=== PATIENT | female | born 1945 | race Caucasian/White ===

== ENCOUNTER 2020-01-13 11:51 | Outpatient (CLI) | payer MEDICARE, OTHER, SELFPAY ==
--- NOTE | 2020-01-13 11:58 | MM_ITS ---
WS: [id number] BILATERAL SCREENING DIGITAL MAMMOGRAM WITH CAD HISTORY: SCREENING COMPARISON: 11/20/2018, 10/30/2017, 09/15/2015 and 08/27/2013 Bilateral CC and MLO views submitted. Computer aided detection analyzed. Breast composition: There are scattered areas of fibroglandular density. No suspicious masses, microc alcifications or architectural distortion. Asymmetry in the lateral LEFT breast has been present on m ultiple prior studies. No increase in size. MM/[id number] IMPRESSION: BI-RADS: 2-Benign FOLLOW UP: 1 Year Follow-up
== END 2020-01-13 11:52 | disposition home or self-care (01) ==
LOC: RADSHAW 11:58
PROVIDERS: PCP Family Medicine; Visit Provider Family Medicine
DX: Z12.31 Encounter for screening mammogram for malignant neoplasm of breast (principal)
CPT/HCPCS: 77067

== ENCOUNTER → 2020-10-29 13:18 | Outpatient (BNVA) | payer MEDICARE, BC, SELFPAY | PROVIDERS: PCP Family Medicine; Visit Provider Surgery | DX: Z01.812 Encounter for preprocedural laboratory examination (principal); Z20.822 Contact with and (suspected) exposure to COVID-19 | CPT/HCPCS: 87635 ==

== ENCOUNTER 2020-11-04 08:23 | Day surgery (SDC) | payer MEDICARE, BC, SELFPAY ==
--- NOTE | 2020-11-04 08:36 | ANES.PREANE2 ---
Pre-Anesthetic Assessment Pre-Anesthetic Assessment: Height/Weight: Height 1.65 m Weight 80.286 kg Preop Diagnosis: SCreening Proposed Procedure: Operation Date: 11/04/20 10:00 Proposed Procedures p Colonoscopy 34969 z12.11(Not Applicable) - Eliel Dwyer MD Familial anesthetic complications: None Was Beta Kim taken within 24 hours: N/A Was Clonidine taken within 24 hours: N/A Last intake: > 8 hrs Social: Social History: No alcohol and No tobacco Exam: Pre-Anes Outpt Exam: alert, oriented x 3, clear to auscultation bilaterally and regular rate & rhythm Airway: Cervical ROM: WNL MP: 2 Dentition: False CV/HEM: CV/HEM: HTN Comments: achieves > 4 mets without LONG or Chest pains Anesthetic Plan: ASA status: 2 Anesthesia: MAC Risk of > 500 ml blood loss (7ml/kg in children): No PFSH Anesthesia PFSH: Medical History Hypertension Osteoporosis Surgical History History of colonoscopy 10 years ago History of hysterectomy History of left knee replacement History of lumbar fusion History of shoulder surgery Bilateral Family History Denies family history of Anesthesia complication Bleeding disorder Social History Smoking and tobacco status: former smoker Data Anesthesia Cardiac Studies: No Data to Display
--- NOTE | 2020-11-04 08:58 | W.PM.OPSUD ---
Surgery/Procedure H&P Update DATE OF PROCEDURE: November 04, 2020 DATE H&P PERFORMED: 10/11/20 H&P UPDATE INFORMATION: I have reviewed H&P completed within last 30 days, I have examined patient prior to procedure and No changes to prior documentation PREOP DIAGNOSIS: screening colonoscopy PLANNED PROCEDURE: Operation Date: 11/04/20 10:00 Proposed Procedures p Colonoscopy 63330 z12.11(Not Applicable) - Eliel Dwyer MD
[2020-11-04 09:18] VITALS: BP 151/87; PULSE 72; RESP 18; TEMP 36.3; O2SAT 95
[2020-11-04] MEDS: sodium chloride 0.9% 1,000 ML 30 ML IV (09:30)
[2020-11-04 10:24] VITALS: BP 98/60; PULSE 70; RESP 18; TEMP 36.5; O2SAT 98
[2020-11-04 10:34] VITALS: BP 108/60; PULSE 66; RESP 18; TEMP 36.3; O2SAT 96
--- NOTE | 2020-11-04 11:18 | ANE.PACU2 ---
Inpatient post-anesthesia follow up: Airway intact: Yes Vital signs: Temperature 97.4 F Pulse Rate 66 Respiratory Rate 18 Blood Pressure 108/60 Pulse Oximetry 96 Oxygen Delivery Me thod Room Air Oxygen Flow Rate Fraction of Inspir ed Oxygen Hydration adequate: Yes Mental status: Baseline
== END 2020-11-04 10:45 | disposition home or self-care (01) ==
PROVIDERS: PCP Family Medicine; Visit Provider Surgery
PROC: 0DJD8ZZ Inspection of Lower Intestinal Tract, Via Natural or Artificial Opening Endoscopic (ICD-10-PCS; CPT 45378; principal; 2020-11-04 10:00)
DX: Z12.11 Encounter for screening for malignant neoplasm of colon (principal); K57.30 Diverticulosis of large intestine without perforation or abscess without bleeding; I10 Essential (primary) hypertension; M81.0 Age-related osteoporosis without current pathological fracture; Z87.891 Personal history of nicotine dependence
CPT/HCPCS: 45378; 96360; J2704; J3490; J7030

== ENCOUNTER 2021-02-10 14:10 | Outpatient (CLI) | payer MEDICARE, BC, SELFPAY ==
--- NOTE | 2021-02-10 14:15 | MM_ITS ---
WS: [id number] BILATERAL SCREENING DIGITAL MAMMOGRAM WITH CAD HISTORY: SCREENING COMPARISON: 01/13/2020 and 11/20/2018 and 10/30/2017 Bilateral CC and MLO views submitted. Computer aided detection analyzed. Breast composition: There are scattered areas of fibroglandular density. No suspicious masses, microc alcifications or architectural distortion. Stable 5 mm nodule in the lateral LEFT breast. MM/[id number] IMPRESSION: BI-RADS: 2-Benign FOLLOW UP: 1 Year Follow-up
== END 2021-02-10 14:11 | disposition home or self-care (01) ==
LOC: RADSHAW 14:12
PROVIDERS: PCP Family Medicine; Visit Provider Family Medicine
DX: Z12.31 Encounter for screening mammogram for malignant neoplasm of breast (principal)
CPT/HCPCS: 77067

== ENCOUNTER 2022-02-13 08:48 | Outpatient (CLI) | payer MEDICARE, SELFPAY ==
--- NOTE | 2022-02-13 08:53 | MM_ITS ---
WS: [id number] SCREENING DIGITAL TOMOSYNTHESIS MAMMOGRAM WITH CAD HISTORY: SCREENING COMPARISON: 02/10/2021 and 01/13/2020 Bilateral CC and MLO with tomosynthesis views submitted. Synthetic mammography reviewed. Computer aid ed detection analyzed. Breast composition: There are scattered areas of fibroglandular density. No suspicious masses, microc alcifications or architectural distortion. MM/[place] [id number] IMPRESSION: BI-RADS: 1-Negative FOLLOW UP: 1 Year Follow-up
== END 2022-02-13 08:49 | disposition home or self-care (01) ==
LOC: RAD 08:50
PROVIDERS: PCP Family Medicine; Visit Provider Family Medicine
DX: Z12.31 Encounter for screening mammogram for malignant neoplasm of breast (principal)
CPT/HCPCS: 77063; 77067

== ENCOUNTER → 2022-08-10 13:59 | Outpatient (BNVA) | payer MEDICARE, SELFPAY | PROVIDERS: PCP Family Medicine; Visit Provider Family Medicine | DX: L98.9 Disorder of the skin and subcutaneous tissue, unspecified (principal) | CPT/HCPCS: 88304 ==

== ENCOUNTER → 2022-10-26 10:57 | Outpatient (BNVA) | payer MEDICARE, SELFPAY | PROVIDERS: PCP Family Medicine; Visit Provider Family Medicine | DX: E78.5 Hyperlipidemia, unspecified (principal); I10 Essential (primary) hypertension; R00.2 Palpitations | CPT/HCPCS: 80053; 80061; 83735; 83880; 84443; 85025; 86140 ==

== ENCOUNTER 2022-12-08 09:56 | Inpatient (IN) | payer MEDICARE, SELFPAY ==
[2022-12-08] VITALS (24 sets, daily range): BP systolic 93–149; BP diastolic 55–95; PULSE 62–113; RESP 14–21; TEMP 36.1–36.7; O2SAT 94–100; BMI 28.3
--- NOTE | 2022-12-08 09:57 | ED_ITS ---
HPI - Fall General: Chief Complaint: ER Hold Stated Complaint: left hip pain. post fall Time Seen by Provider: 12/08/22 09:56 History of Present Illness: 76-year-old lady presenting with fall and hip pain. She reports being at her baseline health and thinks she just tripped falling primarily on the right side. Denies head strike or loss of consciousness. She is on full dose aspirin but no other and coagulation or antiplatelet agent. Does have mild left arm pain. Denies numbness tingling. Pain is mild at rest however becomes severe with palpation and movement. Unable to ambulate. No other specific changes in health, exacerbating, or alleviating factors identified. Supplemental information is that she is currently undergoing evaluation for possible cardiac cause of syncope. She does not think that this is the reason that she fell today however she is wearing a heart monitor. Onset (ago): minute(s) Fall from: standing Loss of consciousness: None Symptoms prior to fall: none Context: tripped/slipped Review of Systems General: Reports: 10 or more systems reviewed and unremarkable except in HPI and below PFSH ED PFSH: Medical History Hypertension Lichen planus Osteoporosis Surgical History History of colonoscopy (11/04/20) Diverticulosis History of hysterectomy History of left knee replacement History of lumbar fusion History of shoulder surgery Bilateral Family History Denies family history of Anesthesia complication Bleeding disorder Social History (Updated 12/08/22 @ 13:57 by Ben Paez MD) Smoking and tobacco status: former smoker Alcohol intake: never Substance/Drug Use: never Caregiver/support person: Yes Lives independently: Yes Household members: spouse Housing: House Physical Exam Const: COMMON NORMALS: alert GENERAL APPEARANCE: cooperative and well developed HENMT: COMMON NORMALS: normocephalic and atraumatic HEAD & SCALP: normocephalic and atraumatic OTHER: No reid signs or raccoon eyes. No hemotympanum. No otorrhea or rhinorrhea. Jaw alignment normal. Dentition baseline. No obvious bony step-offs. No septal hematoma. No evidence of ocular entrapment. Eye: COMMON NORMALS: conjunctivae normal CONJUNCTIVA: Yes conjunctivae normal SCLERA: sclerae normal Neck/C-Spine: COMMON NORMALS: full ROM and supple GENERAL: Yes trachea midline Resp: COMMON NORMALS: normal respiratory effort EFFORT & INSPECTION: Yes able to speak in complete sentences Cardio: COMMON NORMALS: regular rate and regular rhythm RATE: regular rate RHYTHM: regular rhythm GI: COMMON NORMALS: Soft to palpation PALPATION: Yes Soft to palpation and No Tenderness to palpation present (GI) Extremity: NARRATIVE EXTREMITY EXAM: Left hip without clear deformity, distal CMS intact, tenderness palpation. GENERAL: Yes normal exam except as noted and No edema Neuro: COMMON NORMALS: moves all extremities SENSORIUM/ORIENTATION: Yes alert and No Orientation impaired Psych: COMMON NORMALS: mental status grossly normal and Normal thought process present THOUGHT PROCESS: Normal thought process present Course Vital Signs: Vital signs: Vital Signs Temperature 98.0 F 12/14/22 07:33 Pulse Rate 87 12/14/22 07:33 Respiratory Rate 16 12/14/22 07:33 Blood Pressure 152/70 12/14/22 07:33 Pulse Oximetry 92 12/14/22 07:33 Oxygen Delivery Me thod Room Air 12/14/22 07:33 Oxygen Flow Rate 2 12/14/22 08:00 MDM - Fall Medical Decision Making 77-year-old lady presenting with suspected trip and fall unable to ambulate after. Exam as above. Head to toe exam performed. EKG demonstrates sinus rhythm with normal axis and intervals, no STEMI. Labs with no significant hematologic or metabolic abnormalities. Negative range delta troponin. Additional labs were appropriate given evaluation for cardiac syncope and somewhat more vague history upon reassessment and discussion with patient. Chest x-ray with no lobar consolidation or pneumothorax. X-ray positive for left intertrochanteric fracture with displacement. Distal orthopedics and additional x-rays ordered for evaluation of adjacent possible injury. The results of ED evaluation were discussed with the patient including plan for admission due to requirement for level of care not available if discharged to prevent significant worsening/deterioration. Patient agreeable with plan. Discussed with hospitalist service who was agreeable to admit patient. Medical Records I reviewed the patient's medical records. Lab Data I reviewed the patient's lab results. 12/14/22 03:55 12/10/22 04:25 Radiology Impressions Chest X-Ray 06/16/23 10:16 IMPRESSION: No acute chest abnormality. Femur X-Ray 12/08/22 10:46 IMPRESSION: Left hip fracture with intact distal femur and left total knee arthroplasty. Knee X-Ray 12/08/22 10:48 IMPRESSION: Total left knee arthroplasty without abnormality. Pelvis X-Ray 12/08/22 10:48 IMPRESSION: Left hip fracture as above. Hip/Pelvis X-Ray 12/08/22 20:22 IMPRESSION: 1. Left femur surgical hardware in place bridging a previously seen intertrochanteric fracture with postsurgical soft tissue findings about the left hip. 2. Lumbar spine surgical hardware. Laboratory Results WBC 6.7 10^3/uL (4.0-10.0) 12/08/22 10:16 RBC 4.23 10^6/uL (4.1-5.3) 12/08/22 10:16 Hgb 13.0 g/dL (11.5-15.3) 12/08/22 10:16 Hct 37.8 % (37.0-47.0) 12/08/22 10:16 MCV 89.4 fl (81-99) 12/08/22 10:16 MCH 30.7 pg (28.0-34.0) 12/08/22 10:16 MCHC 34.4 g/dL (30.0-36.0) 12/08/22 10:16 RDW 11.9 % (12.1-15.1) L 12/08/22 10:16 Plt Count 200 10^3/cmm (130-400) 12/08/22 10:16 MPV 9.9 fL (7.4-10.4) 12/08/22 10:16 Neut % (Auto) 35.7 % 12/08/22 10:16 Lymph % (Auto) 50.3 % 12/08/22 10:16 [place] % (Auto) 9.5 % 12/08/22 10:16 Eos % (Auto) 3.7 % 12/08/22 10:16 Baso % (Auto) 0.7 % 12/08/22 10:16 Neut # (Auto) 2.39 10^3/uL (1.8-7.7) 12/08/22 10:16 Lymph # (Auto) 3.4 10^3/uL (0.8-4.8) 12/08/22 10:16 [place] # (Auto) 0.6 10^3/uL (0.2-0.9) 12/08/22 10:16 Eos # (Auto) 0.3 10^3/uL (0.0-0.8) 12/08/22 10:16 Baso # (Auto) 0.1 10^3/uL (0.0-0.1) 12/08/22 10:16 Nucleated RBC % (auto) 0 % 12/08/22 10:16 Nucleated RBCs # 0.0 /100WBC 12/08/22 10:16 Sodium 134 mmol/L (136-145) L 12/08/22 10:16 Potassium 4.3 mmol/L (3.5-5.1) 12/08/22 10:16 Chloride 99 mmol/L (98-107) 12/08/22 10:16 Carbon Dioxide 23 mmol/L (22-29) 12/08/22 10:16 Anion Gap 16.3 (5-19) 12/08/22 10:16 BUN 15 mg/dL (8-23) 12/08/22 10:16 Creatinine 0.8 mg/dL (0.5-0.9) 12/08/22 10:16 GFR Calculation Not Reportable 12/08/22 10:16 Glucose 101 mg/dL (65-115) 12/08/22 10:16 Calculated Osmolality 279 mOsm/kg (285-295) L 12/08/22 10:16 Calcium 8.7 mg/dL (8.5-10.5) 12/08/22 10:16 Total Bilirubin 0.3 mg/dL (0.15-1.2) 12/08/22 10:16 AST 27 U/L (0-32) 12/08/22 10:16 ALT 14 U/L (0-33) 12/08/22 10:16 Alkaline Phosphatase 89 U/L (35-105) 12/08/22 10:16 Troponin T Baseline 9 ng/L (0-10) 12/08/22 10:16 NT-Pro-B Natriuret Pep 177 pg/mL (0-450) 12/08/22 10:16 Total Protein 7.3 g/dL (6.6-8.7) 12/08/22 10:16 Albumin 4.3 g/dL (3.5-5.2) 12/08/22 10:16 Globulin 3.0 g/dL (1.3-4.6) 12/08/22 10:16 Vitamin B12 > 2000 pg/mL (232-1245) H 12/08/22 10:16 Discharge Plan Discharge Patient Disposition: Admitted As Inpatient Admit Provider: Ben Paez Clinical Impression: Closed intertrochanteric fracture of left hip Condition: Stable Discharge Diet: Advance as tolerated Discharge Activity: Increase activity as tolerated, Use walker/crutches as instructed and As per PT/OT instructions Coding Level of Care Code ED Fitness Plan Coordinator for Madisyn Eason
--- NOTE | 2022-12-08 10:09 | XR_ITS ---
WS: [id number] XR hip LT 2-3V wo/w pel* [id number] REASON FOR EXAM: fall, hip pain FINDINGS: Intertrochanteric fracture with significant medial displacement of the lesser trochanteric fracture f ragment. Remaining fracture fragments are not significantly displaced. XR/XR hip LT 2-3V wo/w pel* [id number] IMPRESSION: Left hip fracture as above.
--- NOTE | 2022-12-08 10:16 | XR_ITS ---
WS: [id number] XR chest 1V portable [id number] REASON FOR EXAM: fall FINDINGS: The heart and the mediastinum are within normal limits. Calcified granulomatous disease bilaterally. No active pulmonary parenchymal or pleural disease. Significant arthropathy in the right shoulder. Likely due to complete tear of the rotator cuff tendon . Previous rotator cuff tendon repair on the left. Mild degenerative spondylosis in the mid and upper thoracic spine. XR/XR chest 1V portable [id number] IMPRESSION: No acute chest abnormality.
[2022-12-08] MEDS: fentaNYL 50 mcg/mL INJ 2mL IVP ×6 (10:21→20:45)
--- NOTE | 2022-12-08 10:29 | ECG_ITS ---
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 Measurements Intervals [place] Rate: 63 P: 40 IN: 155 QRS: 16 QRSD: 81 T: 41 QT: 413 QTc: 424 Interpretive Statements SINUS RHYTHM No previous ECG available for comparison Electronically Signed On 12-08-2022 11:19:33 CDT by Isauro Lazo M.D. [id number]
[2022-12-08 10:31] LABS: Basophils # 0.1 10^3/uL (0.0-0.1); Basophils % 0.7 %; Eosinophils # 0.3 10^3/uL (0.0-0.8); Eosinophils % 3.7 %; Hematocrit 37.8 % (37.0-47.0); Lymphocytes # 3.4 10^3/uL (0.8-4.8); Lymphocytes % 50.3 %; Mean Corpuscular HGB Conc 34.4 g/dL (30.0-36.0); Mean Corpuscular Hemoglobin 30.7 pg (28.0-34.0); Mean Corpuscular Volume 89.4 fl (81-99); Mean Platelet Volume 9.9 fL (7.4-10.4); Monocytes # 0.6 10^3/uL (0.2-0.9); Monocytes % 9.5 %; Neutrophils # 2.39 10^3/uL (1.8-7.7); Neutrophils % 35.7 %; Nucleated Red Blood Cells % 0 %; Platelet Count 200 10^3/cmm (130-400); Red Blood Count 4.23 10^6/uL (4.1-5.3); Red Cell Distribution Width 11.9 % (12.1-15.1); White Blood Count 6.7 10^3/uL (4.0-10.0)
--- NOTE | 2022-12-08 10:46 | XR_ITS ---
WS: [email or web address] XR femur LT min 2V* [id number] REASON FOR EXAM: hip frac FINDINGS: Left hip fracture as previously described. The remainder of the femur to the knee joint is intact with a total left knee arthroplasty. The compo nents of the arthroplasty are intact and in proper position and alignment. There is no fracture or ot her focal bony abnormality of the distal left femur. XR/XR femur LT min 2V* [id number] IMPRESSION: Left hip fracture with intact distal femur and left total knee arthroplasty.
--- NOTE | 2022-12-08 10:48 | XR_ITS ---
WS: [email or web address] XR knee LT 3V* [id number] REASON FOR EXAM: hip fr FINDINGS: Total left knee arthroplasty. Prosthetic components are intact and in proper position and alignment. No fracture or focal bone abnormality is identified. XR/XR knee LT 3V* [id number] IMPRESSION: Total left knee arthroplasty without abnormality.
--- NOTE | 2022-12-08 10:48 | XR_ITS ---
WS: [id number] XR pelvis 1-2V* [id number] REASON FOR EXAM: hip fracture FINDINGS: Previous posterior fusion lower lumbar sacral spine. No pelvic fracture. Intertrochanteric fracture of the left hip with significant medial displacement of the lesser trochan teric fragment. 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 XR/XR pelvis 1-2V* [id number] IMPRESSION: Left hip fracture as above.
[2022-12-08 10:49] LABS: Troponin(5th) Baseline 9 ng/L (0-10)
[2022-12-08 10:58] LABS: Alanine Aminotransferase 14 U/L (0-33); Albumin Level 4.3 g/dL (3.5-5.2); Alkaline Phosphatase 89 U/L (35-105); Anion Gap 16.3 (5-19); Aspartate Amino Transferase 27 U/L (0-32); Blood Urea Nitrogen 15 mg/dL (8-23); Calcium 8.7 mg/dL (8.5-10.5); Carbon Dioxide 23 mmol/L (22-29); Chloride 99 mmol/L (98-107); Glucose 101 mg/dL (65-115); NT Pro B Type Natriuretic Pept 177 pg/mL (0-450); Osmolality Calculated 279 mOsm/kg (285-295); Potassium 4.3 mmol/L (3.5-5.1); Sodium 134 mmol/L (136-145); Total Bilirubin 0.3 mg/dL (0.15-1.2); Total Protein 7.3 g/dL (6.6-8.7)
--- NOTE | 2022-12-08 11:51 | ECG_ITS ---
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 Measurements Intervals [place] Rate: 69 P: 33 DC: 145 QRS: 9 QRSD: 98 T: 32 QT: 418 QTc: 450 Interpretive Statements SINUS RHYTHM Compared to ECG 12/08/2022 10:29:09 No significant changes Electronically Signed On 12-08-2022 12:17:30 CDT by Isauro Lazo M.D. [id number]
[2022-12-08 12:42] LABS: Troponin 5 2HR 7.68 ng/L (0-10)
[2022-12-08 12:46] LABS: Troponin 5 2HR Delta -1.32 ABS# (0-10)
--- NOTE | 2022-12-08 13:20 | P.HP_ITS ---
Providers/Chief Complaint Admitting Physician: Ben Paez MD Primary Care Provider: Contreras Jose MD Chief Complaint: left hip pain. post fall History of Present Illness Adriano Grubbs is a 76 year old female with past medical history of hypertension, recent under evaluation for syncope and collapse with event monitor which showed no A-fib. 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 As per the family at that time when they check blood pressure she was found to be hypotensive with systolic blood pressure of around 80 mmHg which recovered with oral intake of fluids and salt. Family does say that patient usually does not drink much of the fluids during the day. That day prior to syncope she did have a trip to [facility] and did not drink much of the liquids. Today while walking she tripped. She denies any aura, headache, chest pain, nausea or vomiting prior to the fall. After fall started having pain in her hip. In the ER found to have left hip fracture. Review of Systems General: Reports: 10 or more systems reviewed and unremarkable except in HPI and below Const: Denies: fever(s), chills, body aches, change in appetite, change in weight, malaise, night sweats, diaphoresis, change in sleep pattern, daytime sleepiness or snoring Eyes: Denies: change in vision, blurry vision, photophobia, eye discomfort or eye discharge ENMT: Denies: throat pain, enlarged tonsils, hoarseness, mouth pain, oral sores, dry mouth, tinnitus, nasal congestion or post nasal drip Card: Denies: chest pain, palpitations, irregular heart rhythm, edema, swelling of feet/ankles, lightheadedness, syncope, pre-syncope, dyspnea on exer tion, orthopnea, leg pain with exertion or acrocyanosis Resp: Denies: dyspnea, productive cough, non-productive cough, wheezing, stridor, pain on inspiration, change in phlegm color, hemoptysis or chest congestion GI: Denies: abdominal pain, nausea, vomiting, hematemesis, coffee ground emesis, dysphagia, heartburn, diarrhea, constipation, bloating, GI cramping, change in bowel habits, pain on defecation, hematochezia or melena : Denies: flank pain, dysuria, urinary frequency, urinary urgency, urinary hesitancy, nocturia or hematuria Musc: Denies: neck pain, back pain, extremity pain, joint pain, joint swelling, joint redness, joint stiffness or limited range of motion Neuro: Denies: headache(s), numbness in extremities, weakness in extremities, sensory changes, lack of coordination, difficulty walking, frequent falls, dizziness, vertigo, confusion, Slurred speech present, difficulty communicating thoughts or seizure-like activity Psych: Denies: anxiety, depression, mood swings, panic attacks, hopelessness or irritability Endo: Denies: polyuria, polydipsia, tired all the time, cold intolerance, excessive sweating, flushing or heat intolerance Javi/Lymph: Denies: easy bruising or easy bleeding All/Imm: Denies: tongue swelling, facial swelling or acute wheezing Medications/Allergies Home Medications Medication Instructions Recorded Confirmed Last Taken Type triamcinolone acetonide 0.5 % 1 applic topical BID #15 grams 08/28/22 12/08/22 12/07/22 Rx topical ointment lisinopril 20 mg tablet 20 mg PO DAILY #30 tabs 10/10/22 12/08/22 12/07/22 Rx alendronate 70 mg tablet 70 mg PO .weekly #12 tabs 10/26/22 12/08/22 12/04/22 Rx ascorbic acid (vitamin C) 1,000 mg 1,000 mg PO DAILY 12/08/22 12/08/22 12/07/22 History tablet (Vitamin C) aspirin 325 mg capsule 325 mg PO DAILY 12/08/22 12/08/22 12/07/22 History cholecalciferol (vitamin D3) 25 25 mcg PO DAILY 12/08/22 12/08/22 12/07/22 History mcg (1,000 unit) tablet (Vitamin D3) glucosamine sulf dipot 1 cap PO DAILY 12/08/22 12/08/22 12/07/22 History chlr,msm,chond 550 mg-C 30 mg-murtaza 1 mg capsule (Glucosamine Chondroitin) multivitamin-ferrous 1 tab PO DAILY 12/08/22 12/08/22 12/07/22 History fumarate-folic acid 18 mg-400 mcg tablet potassium citrate 99 mg capsule 99 mg PO DAILY 12/08/22 12/08/22 12/08/22 History vitamin B12 2,500 mcg-folic acid 1 tab PO DAILY 12/08/22 12/08/22 12/07/22 History 400 mcg disintegrating tablet Allergies Allergy/AdvReac Type Severity Reaction Status Date / Time codeine Allergy Itching Verified 12/08/22 11:35 PFSH Acute PFSH: Medical History Hypertension Lichen planus Osteoporosis Surgical History History of colonoscopy (11/04/20) Diverticulosis History of hysterectomy History of left knee replacement History of lumbar fusion History of shoulder surgery Bilateral Family History Denies family history of Anesthesia complication Bleeding disorder Social History (Updated 12/08/22 @ 13:57 by Ben Paez MD) Smoking and tobacco status: former smoker Alcohol intake: never Substance/Drug Use: never Caregiver/support person: Yes Lives independently: Yes Household members: spouse Housing: House Vitals/I&O/Wt Last Vital Signs Temp 97.6 F 12/08/22 10:04 Pulse 66 12/08/22 12:00 Resp 14 12/08/22 12:00 BP 123/82 12/08/22 12:00 Pulse Ox 97 12/08/22 12:00 O2 Del Method Room Air 12/08/22 12:13 Weight last 48 hrs Weight 77.111 kg Physical Exam Narrative: General: No acute distress, AO x3 HEENT: PERRLA, pupils bilaterally equal and reactive Chest: Normal vesicular breath sounds, no added sounds, equal good air entry bilaterally CVS: S1-S2 regular, no murmurs, no tachycardia, no gallops, no rubs Abdomen: Soft, nontender, no organomegaly, bowel sounds present Neuro: No focal deficits, no facial deformity, AO x3, power 5/5 in all limbs Extremity: Leg in antalgic position. Data 12/08/22 10:16 12/08/22 10:16 A&P Assessment and plan (1) Closed intertrochanteric fracture of left hip: Orthopedic consulted from the ER. Post mechanical fall. Plan for OR. Perioperative antibiotics, anticoagulation, PT as per orthopedic team. Stewart catheterization. Start on normal saline at 75 cc/h. [place] 5 mg every 6 hourly as needed, morphine 1 mg IV every 4 hours needed for pain medication. Monitor hemoglobin. (2) Hypertension: Goal of pressure less than 140/90 mmHg. Continue with home dose of lisinopril for now. Continue to monitor blood pressures. (3) Palpitations: Been worked up as an outpatient. Event monitor showed no A-fib. Continue to monitor on telemetry. Plan Syncope and collapse: Mechanical fall today. 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 Associated with hypotension as per family. Continue to monitor. Carotid ultrasound, echocardiogram. Check iron panel, TSH, vitamin B12, folate level. CODE STATUS: Discussed in detail with the patient. Full code. NPO. Cardiac diet post OR. Famotidine for PUD prophylaxis. Foot pumps for DVT prophylaxis. Attestations Medical Necessity Statement*: Admission for more than 2 midnights for management of left hip fracture Diagnoses Closed intertrochanteric fracture of left hip S72.142A Hypertension I10 Palpitations R00.2
[2022-12-08] MEDS: morphine 4 mg/mL SDV 1 mL IVP (14:09)
[2022-12-08] MEDS: morphine 4 mg/mL SDV 1 mL 1 MG IVP (15:04)
[2022-12-08] MEDS: sodium chloride 0.9% 1,000 ML 75 ML IV (15:05)
[2022-12-08 15:15] LABS: Add Urine Microscopic? NO; Charge for UA Resulting for Rev
[2022-12-08 15:20] LABS: Vitamin B12 > 2000 pg/mL (232-1245)
[2022-12-08 15:26] LABS: Bilirubin Urine Neg (Negative); Blood Urine Neg (Negative); Glucose Urine UA Norm (Normal); Ketones Urine Negative (Negative); Leukocyte Esterase Urine Negative (Negative); Nitrate Urine Negative (Negative); Protein Urine Neg (Negative); Specific Gravity, Urine 1.015 (1.005-1.030); Urine Appearance Clear (CLEAR); Urine Color Yellow (Yellow); Urobilinogen Urine Norm (Negative); pH Urine 6.5 (5-7)
--- NOTE | 2022-12-08 15:29 | P.CONIM_ITS ---
Providers/Reason For Consult Consulting Physician/Specialty*: Ba Olvera DO/orthopedic surgery Reason for Consult*: Left intertrochanteric femur fracture Requesting Physician: Dr. Bonner Attending Physician: Ben Paez MD Primary Care Provider: Contreras Jose MD History of Present Illness History of Present Illness Adriano Grubbs is a 76 year old female with past medical history of hypertension, recent under evaluation for syncope and collapse with event monitor which showed no A-fib.? Patient sustained a ground-level fall onto her left hip she was unable to bear weight. Brought to emergency department found to have left intertrochanteric femur fracture. She denies any fevers chills chest pain shortness of breath nausea vomiting she states she last ate at 8 AM of coffee and cookies. Patient has a history remote of a left total knee arthroplasty she denies any pain to this area complains only of left hip pain. She lives at home and is a community ambulator at baseline. She lives at home with her . Review of Systems General: Reports: 10 or more systems reviewed and unremarkable except in HPI and below Medications/Allergies Home Medications Medication Instructions Recorded Confirmed Last Taken Type triamcinolone acetonide 0.5 % 1 applic topical BID #15 grams 08/28/22 12/08/22 12/07/22 Rx topical ointment lisinopril 20 mg tablet 20 mg PO DAILY #30 tabs 10/10/22 12/08/22 12/07/22 Rx alendronate 70 mg tablet 70 mg PO .weekly #12 tabs 10/26/22 12/08/22 12/04/22 Rx ascorbic acid (vitamin C) 1,000 mg 1,000 mg PO DAILY 12/08/22 12/08/22 12/07/22 History tablet (Vitamin C) aspirin 325 mg capsule 325 mg PO DAILY 12/08/22 12/08/22 12/07/22 History cholecalciferol (vitamin D3) 25 25 mcg PO DAILY 12/08/22 12/08/22 12/07/22 History mcg (1,000 unit) tablet (Vitamin D3) glucosamine sulf dipot 1 cap PO DAILY 12/08/22 12/08/22 12/07/22 History chlr,msm,chond 550 mg-C 30 mg-murtaza 1 mg capsule (Glucosamine Chondroitin) multivitamin-ferrous 1 tab PO DAILY 12/08/22 12/08/22 12/07/22 History fumarate-folic acid 18 mg-400 mcg tablet potassium citrate 99 mg capsule 99 mg PO DAILY 12/08/22 12/08/22 12/08/22 History vitamin B12 2,500 mcg-folic acid 1 tab PO DAILY 12/08/22 12/08/22 12/07/22 History 400 mcg disintegrating tablet Allergies Allergy/AdvReac Type Severity Reaction Status Date / Time No Known Allergies Allergy Verified 12/08/22 14:58 Current Medications Generic Name Dose Route Start Last Admin Trade Name Freq PRN Reason Stop Dose Admin Sodium Chloride 1,000 mls @ 75 mls/hr 12/08/22 14:02 12/08/22 15:05 Sodium Chloride 0.9% IV 75 mls/hr .[id number] ALVIN Administration Morphine Sulfate 1 mg 12/08/22 14:34 12/08/22 15:04 Morphine 4 Mg/Ml Sdv 1 Ml IVP 1 mg Q4H PRN Administration SEVERE PAIN PFSH Acute PFSH: Medical History Hypertension Lichen planus Osteoporosis Surgical History History of colonoscopy (11/04/20) Diverticulosis History of hysterectomy History of left knee replacement History of lumbar fusion History of shoulder surgery Bilateral Family History Denies family history of Anesthesia complication Bleeding disorder Social History (Updated 12/08/22 @ 13:57 by Ben Paez MD) Smoking and tobacco status: former smoker Alcohol intake: never Substance/Drug Use: never Caregiver/support person: Yes Lives independently: Yes Household members: spouse Housing: House Vitals/I&O/Wt Last Vital Signs Temp 97.8 F 12/08/22 14:34 Pulse 63 12/08/22 14:34 Resp 18 12/08/22 15:04 BP 93/55 12/08/22 14:34 Pulse Ox 99 12/08/22 14:34 O2 Del Method Room Air 12/08/22 14:35 Weight last 48 hrs Weight 170 lb Physical Exam Narrative: Orthopedic examination: Examination of patient's left hip is shortened and externally rotated. She has severe pain to palpation of the left hip anteriorly positive logroll, unable to perform [place] secondary to pain. She is able to wiggle toes plantarflex and dorsiflex ankle. Sensations intact to light touch distally distal pulses are palpable toes are warm well perfused. Patient is able to tolerate logroll examination of the right lower extremity no pain to the right hip knee or right foot and ankle. No tenderness to palpation of the left knee previous total knee incision well-healed no signs of infection and no swelling or pain at the knee. Secondary survey examination demonstrates no tenderness to palpation or painful range of motion of the bilateral upper extremity shoulders elbows wrist and hands. Gross motor and sensory intact distal pulses are palpable. Const: COMMON NORMALS: no acute distress and patient oriented x3 HENMT: COMMON NORMALS: normocephalic and atraumatic HEAD & SCALP: normocephalic and atraumatic Resp: COMMON NORMALS: normal respiratory effort and No retractions Cardio: COMMON NORMALS: Peripheral pulses 2+ throughout PERIPHERAL PULSES: Peripheral pulses 2+ throughout Neuro: COMMON NORMALS: patient oriented x3 Data 12/08/22 10:16 12/08/22 10:16 Xray Ortho: My impression: X-rays multiple views of the pelvis hip femur and knee on the left side demonst rate a displaced left intertrochanteric femur fracture fracture pattern appears to be stable in nature. Does not appear to have subtrochanteric involvement. Total knee arthroplasty appears to be stable no evidence of periprosthetic fracture. A&P Assessment and plan (1) Closed intertrochanteric fracture of left hip: Plan MDM: Patient is a pleasant 76-year-old female who sustained a mechanical fall to the left hip and sustained a left intertrochanteric femur fracture we talked about treatment options as far as nonoperative and operative intervention. She is a community ambulator active at baseline and lives at home with her . At this point time through shared decision making agreed to proceed with left hip trochanteric femur nail. We talked about the benefits of this being earlier mobilization as well as pain control. I feel this is in her best interest proceeding with surgical intervention family as well as patient agree and elect to proceed with surgery. They understand the risk benefits complication alternatives with surgery risk of surgery include not limited to make it better make it worse blood clot, heart attack, stroke, on the table, infection, hardware failure, nonunion, malunion. Understanding risk of surgery patient elects to proceed all questions answered. We will proceed with left trochanteric femur nail this evening as she ate at 8 AM this morning and will be cleared by anesthesia N.p.o. Nonweightbearing left lower extremity Imaging reviewed Labs reviewed Pain control Ice as needed Plan to proceed with left trochanteric femur nail this evening Internal medicine admitted as primary Coding Level of Care Code Acute Code for [facility] [place] Diagnoses Closed intertrochanteric fracture of left hip S72.142A Time Spent (min) 45
--- NOTE | 2022-12-08 16:30 | P.ANESASSM_ITS ---
Pre-Anesthetic Assessment Height/Weight: Height 1.65 m Weight 77.111 kg Temp Pulse Resp BP Pulse Ox O2 Del Method 98.1 F 68 17 117/62 96 Room Air 12/08/22 16:00 12/08/22 16:00 12/08/22 16:00 12/08/22 16:00 12/08/22 16:00 12/08/22 14:35 Operation Date: 12/08/22 17:55 Proposed Procedures p Trochanteric Femoral Nail(Left) - Ba May, DO Was Beta Kim taken within 24 hours: N/A Was Clonidine taken within 24 hours: N/A Social No alcohol and No tobacco Exam CARDIAC: RRR; no M/G/R's LUNGS: CTA b/l Airway Submandibular: within normal limits Cervical ROM: within normal limits Mallampati: Class I Pulmonary None reported CV/HEM Hypertension None reported Hepatic None reported GI None reported Metabolic None reported Musc/skel Osteoarthritis/DJD Anesthetic Plan ASA status: 3 Anesthesia: General Medications/Allergies Home Medications Medication Instructions Recorded Confirmed Last Taken Type triamcinolone acetonide 0.5 % 1 applic topical BID #15 grams 08/28/22 12/08/22 12/07/22 Rx topical ointment lisinopril 20 mg tablet 20 mg PO DAILY #30 tabs 10/10/22 12/08/22 12/07/22 Rx alendronate 70 mg tablet 70 mg PO .weekly #12 tabs 10/26/22 12/08/22 12/04/22 Rx ascorbic acid (vitamin C) 1,000 mg 1,000 mg PO DAILY 12/08/22 12/08/22 12/07/22 History tablet (Vitamin C) aspirin 325 mg capsule 325 mg PO DAILY 12/08/22 12/08/22 12/07/22 History cholecalciferol (vitamin D3) 25 25 mcg PO DAILY 12/08/22 12/08/22 12/07/22 History mcg (1,000 unit) tablet (Vitamin D3) glucosamine sulf dipot 1 cap PO DAILY 12/08/22 12/08/22 12/07/22 History chlr,msm,chond 550 mg-C 30 mg-murtaza 1 mg capsule (Glucosamine Chondroitin) multivitamin-ferrous 1 tab PO DAILY 12/08/22 12/08/22 12/07/22 History fumarate-folic acid 18 mg-400 mcg tablet potassium citrate 99 mg capsule 99 mg PO DAILY 12/08/22 12/08/22 12/08/22 History vitamin B12 2,500 mcg-folic acid 1 tab PO DAILY 12/08/22 12/08/22 12/07/22 History 400 mcg disintegrating tablet Allergies Allergy/AdvReac Type Severity Reaction Status Date / Time No Known Allergies Allergy Verified 12/08/22 14:58 Current Medications Generic Name Dose Route Start Last Admin Trade Name Freq PRN Reason Stop Dose Admin Sodium Chloride 1,000 mls @ 75 mls/hr 12/08/22 14:02 12/08/22 15:05 Sodium Chloride 0.9% IV 75 mls/hr .[id number] ALVIN Administration Morphine Sulfate 1 mg 12/08/22 14:34 12/08/22 15:04 Morphine 4 Mg/Ml Sdv 1 Ml IVP 1 mg Q4H PRN Administration SEVERE PAIN PFSH Anesthesia Medical History Hypertension Lichen planus Osteoporosis Surgical History History of colonoscopy (11/04/20) Diverticulosis History of hysterectomy History of left knee replacement History of lumbar fusion History of shoulder surgery Bilateral Family History Denies family history of Anesthesia complication Bleeding disorder Social History (Updated 12/08/22 @ 13:57 by Ben Paez MD) Smoking and tobacco status: former smoker Alcohol intake: never Substance/Drug Use: never Caregiver/support person: Yes Lives independently: Yes Household members: spouse Housing: House Data Anesthesia 12/08/22 10:16 12/08/22 10:16 Short CBC 12/08/22 Range/Units 10:16 WBC 6.7 (4.0-10.0) 10^3/uL Hgb 13.0 (11.5-15.3) g/dL Hct 37.8 (37.0-47.0) % MCV 89.4 (81-99) fl Plt Count 200 (130-400) 10^3/cmm Neut % (Auto) 35.7 % Neut # (Auto) 2.39 (1.8-7.7) 10^3/uL BMP 12/08/22 10:16 Sodium 134 L Potassium 4.3 Chloride 99 Carbon Dioxide 23 BUN 15 Creatinine 0.8 Glucose 101 Calcium 8.7 Cardiac Enzymes 12/08/22 12/08/22 12/08/22 Range/Units 10:16 10:16 12:17 Troponin T Baseline 9 (0-10) ng/L Troponin T 120 Minute 7.68 (0-10) ng/L Delta Troponin T -1.32 L (0-10) ABS# NT-Pro-B Natriuret Pep 177 (0-450) pg/mL Liver Function 12/08/22 Range/Units 10:16 Total Bilirubin 0.3 (0.15-1.2) mg/dL AST 27 (0-32) U/L ALT 14 (0-33) U/L Alkaline Phosphatase 89 (35-105) U/L Albumin 4.3 (3.5-5.2) g/dL Urine 12/08/22 Range/Units 15:05 Urine Color Yellow (Yellow) Urine Appearance Clear (CLEAR) Urine pH 6.5 (5-7) Ur Specific [place] 1.015 (1.005-1.030) Urine Protein Neg (Negative) Urine Glucose (UA) Norm (Normal) Urine Ketones Negative (Negative) Urine Nitrate Negative (Negative) Urine Bilirubin Neg (Negative) Ur Leukocyte Esterase Negative (Negative) Cardiac Studies: Cardiac Event Monitor 11/08/22
[2022-12-08] MEDS: sodium chloride 0.9% 1,000 ML 30 ML IV (16:33)
[2022-12-08 16:48] LABS: Troponin 5 6HR 7.28 ng/L (0-10)
[2022-12-08 16:53] LABS: Troponin 5 6HR Delta -1.72 ng/L (0-12)
[2022-12-08] MEDS: ketorolac 30 mg/mL INJ 15 MG IVP (18:35)
[2022-12-08] MEDS: ceFAZolin 2,000 MG in sodium chloride 0.9% (plus) 50 ML 100 MG IV (18:45)
--- NOTE | 2022-12-08 18:50 | W.PM.OPSUD ---
Surgery/Procedure H&P Update DATE OF PROCEDURE: December 08, 2022 DATE H&P PERFORMED: 12/08/22 CHANGES TO PREVIOUS DOCUMENTATION: None. Discussed with patient and family patient has a left intertrochanteric femur fracture and through shared decision-making agrees to proceed with a left femur trochanteric nail. All questions answered. Understands risk benefits complication alternatives of surgery and agrees to proceed all questions answered. PREOP DIAGNOSIS: Left intertrochanteric femur fracture PRIMARY INDICATION FOR PROCEDURE: Left intertrochanteric femur fracture PLANNED PROCEDURE: Operation Date: 12/08/22 17:55 Proposed Procedures p Trochanteric Femoral Nail(Left) - Ba Olvera DO
[2022-12-08] MEDS: tranexamic acid 1,000 mg/10mL SDV 1000 MG IV (19:25)
--- NOTE | 2022-12-08 20:15 | PM.OP2 ---
Brief Operative Note Date of procedure: 12/08/22 Pre-op diagnosis: Left intertrochanteric femur fracture Post-op diagnosis: same Procedure Done: Left intertrochanteric femur fracture trochanteric femur nail Surgeon: Ba Olvera Estimated blood loss (mL): 75 Complications: None Post-op Plan: Patient taken to PACU in stable condition recovering well return to floor postoperatively. Postoperative pain medication DVT prophylaxis postoperative antibiotics postoperative TXA. Weightbearing as tolerated left lower extremity PT/OT. Orthopedics will continue to follow on the floor. Internal medicine on board as primary. Condition: stable Disposition: floor Coding Level of Care Code Acute Code for [facility]
--- NOTE | 2022-12-08 20:18 | PM.PACU ---
PACU note Narrative: Patient taken to PACU in stable condition recovering well. Dressings on in place clean dry and intact. Toes warm well-perfused brisk cap refill less than 2 seconds distal pulses are palpable. Patient is able to wiggle toes plantarflex and dorsiflex ankle sensations intact light touch distally. Exam: awake Disposition: back to floor
--- NOTE | 2022-12-08 20:18 | PM.OP ---
Operative Report Date of procedure: December 08, 2022 Pre-op diagnosis: Preop Diagnosis Left intertrochanteric femur fracture Procedure: Post-op diagnosis: left displaced intertrochanteric femur fracture Procedure done: left intertrochanteric femur fracture ORIF with cephalomedullary nail Implants: Marley gamma nail short 11 mm x 180 mm x 125 degree Lag screw 10.5 mm x 100 mm Distal locking screw 5 mm x 35 mm Surgeon: Ba Olvera DO Estimated blood loss: 75mm IV fluids: 600 mL Urine output: See anesthesia record Complications: See operative report Findings: See operative report narrative Condition: stable Disposition: FLoor Brief History: Patient sustained a fall and was found to have a left intertrochanteric hip fx.? She is been unable to bear weight left hip/lower extremity shortened and externally rotated she is unable to bear weight.? At this point time she was admitted by the hospitalist team we talked about treatment options as far as nonoperative and operative intervention.? At this point time she would like to pursue surgical intervention for benefits of pain control and earlier mobilization.? Her baseline is community ambulator and lives at home with . She understands the ins and outs of procedure, the risk benefits complication alternatives of surgical nonsurgical treatment options.? Understanding risk of surgery she agrees to proceed with surgical intervention all questions answered.? Consent obtained. Procedure: Patient seen evaluated in the preoperative holding area.? Consent obtained.? Correct extremity was then marked.? Once cleared by anesthesia and the hospitalist team patient was taken back to the operative suite.? Patient underwent anesthesia per the anesthesia department.? Once appropriately anesthetized she was placed on a fracture [place] table.? Patient was appropriately secured to the bed.? All bony prominences were well-padded.? At this point time patient received appropriate preoperative antibiotics.? Final timeout was performed.? Prior to beginning surgery a standard closed reduction maneuver was placed on the [place] table and large C-arm was brought in.? After performing a closed reduction maneuver there was able to achieve satisfactory reduction of left intertrochanteric femur fracture.? Fracture site did not extend into the subtrochanteric region as result plan was for a short nail.?? This point time the left lower extremity was then prepped and draped in standard orthopedic fashion. A standard longitudinal incision was made just proximal to the greater trochanter roughly 4 cm in length sharp scalpel vision was made through skin and subcutaneous tissue.? I then utilized a blunt Mcdermott to split her fascia and mobilized directly down to the greater trochanter.? I then inserted my starting guidewire which was placed appropriate starting position the tip of the greater trochanter.? This was advanced in AP and lateral films to be in center center position and advanced to the level lesser trochanter.? This was confirmed to be in center center position on AP and lateral imaging.? Once this was done I then introduced my opening reamer which was then subsequently guide pin removed.? I selected a 11 mm x 180 mm x 125 degree. At this point time the nail was then loaded onto the [employer]rown[employer] gamma trochanteric nail guide.? This was placed within the canal and confirmed with XR and the setscrew was then gently placed.? The nail was then impacted to appropriate depth .? At this point time I then inserted my lag screw guide and subsequently made a small incision through skin and subcutaneous tissue splitting the IT band longitudinally and the guide was placed directly onto bone.? Next I then subsequently placed the guidewire in center center position in the head with an appropriate tip to apex distance this was confirmed with multiple orthogonal images.? Once I was satisfied with my planned lag screw placement I then measured which was 100.? I then set my cannulated drill 100 subsequently reamed this into the head at appropriate depth and did feel as though this would accommodate [id number]. Had an excellent tip to apex distance.? I then had my rep open the 10.5 mm x 100 mm lag screw which was then opened on the back table and subsequently screwed into place over my cannulated drill guide.? This was placed with excellent tip to apex distance.? Next I then utilized the compressing device and subsequently compressed my fracture after I let off traction.? This had excellent fracture compression and opposition and closing down to my fracture line.? Next I then locked the nail setting my setscrew.? This point time the guidewire as well as the sleeve was then removed.? Next I plan for statically locking the nail distally.? This triple sleeve was then placed a small stab incision was made blunt dissection directly down to bone and the guide sleeve was placed and locked directly onto the bone.? I then inserted the drill bit and subsequently drilled bicortically measured appropriate length screw and then placed a 35 mm distal interlocking screw and had excellent fixation was appropriate length.? This point time is completed my construct I remove the outer jig and took final images of AP and lateral of the left intertrochanteric femur fracture which showed stable reduction and stable fixation.? Wound was then thoroughly irrigated.? Hemostasis was maintained with electrocautery.? I then once again thoroughly irrigated the incisions and then subsequently closed in layered fashion of 0 Vicryl 2-0 Vicryl and atul.? Silverlon dressings applied.? Patient was then awakened from anesthesia transported onto the hospital bed and taken to PACU in stable condition.? Patient tolerated procedure without complications. Disposition: Patient taken to PACU in stable condition.? Postoperatively.? Patient to receive appropriate discharge instructions as well as pain medication DVT prophylaxis postoperatively.? She will be allowed weightbearing as tolerated left lower extremity.? Patient to follow-up in the orthopedic office in 2 weeks.? Patients family understands and agrees with current plan.? All questions answered.
--- NOTE | 2022-12-08 20:22 | XRR_ITS ---
PROCEDURE INFORMATION: Exam: XR Left Hip Exam date and time: 12/08/2022 8:33 PM Age: 76 years old Clinical indication: Other: Post op; Prior surgery; Surgery date: Post-operative (0-2 days); Surgery type: S/P lt trochanteric femur nail today; Additional info: Left trochanteric femur nail, ap pelvis, ap left hip, crosstable lateral TECHNIQUE: Imaging protocol: Radiologic exam of the left hip. Views: 2 or 3 views hip with pelvis when performed. COMPARISON: CR XR pelvis 1-2V* [id number] 12/08/2022 10:54 AM FINDINGS: Bones/joints: Left femur surgical hardware in place bridging a previously seen intertrochanteric fracture with postsurgical soft tissue findings about the left hip. Lumbar spine surgical hardware. Soft tissues: See Bones/joints finding. XR/XR hip LT 2-3V wo/w pel* [id number] IMPRESSION: 1. Left femur surgical hardware in place bridging a previously seen intertrochanteric fracture with postsurgical soft tissue findings about the left hip. 2. Lumbar spine surgical hardware.
[2022-12-08] MEDS: TRAMadol 50 mg Tablet PO (22:10)
[2022-12-09] VITALS (13 sets, daily range): BP systolic 95–112; BP diastolic 51–63; PULSE 71–86; RESP 14–19; TEMP 36.4–37.1; O2SAT 90–98
[2022-12-09] MEDS: acetaminophen 325 mg Tablet 650 MG PO (00:07)
[2022-12-09] MEDS: ceFAZolin 2,000 MG in sodium chloride 0.9% (plus) 50 ML 100 MG IV ×3 (02:19→19:03)
[2022-12-09 06:04] LABS: Basophils % 0.1 %; Hematocrit 29.3 % (37.0-47.0); Hemoglobin 10.1 g/dL (11.5-15.3); Lymphocytes # 0.6 10^3/uL (0.8-4.8); Lymphocytes % 8.2 %; Mean Corpuscular HGB Conc 34.5 g/dL (30.0-36.0); Mean Corpuscular Hemoglobin 31.5 pg (28.0-34.0); Mean Corpuscular Volume 91.3 fl (81-99); Mean Platelet Volume 9.9 fL (7.4-10.4); Monocytes # 0.3 10^3/uL (0.2-0.9); Monocytes % 4.8 %; Neutrophils # 5.94 10^3/uL (1.8-7.7); Neutrophils % 86.5 %; Nucleated Red Blood Cells % 0 %; Platelet Count 159 10^3/cmm (130-400); Red Blood Count 3.21 10^6/uL (4.1-5.3); Red Cell Distribution Width 12.1 % (12.1-15.1); White Blood Count 6.9 10^3/uL (4.0-10.0)
[2022-12-09 06:25] LABS: Alanine Aminotransferase 13 U/L (0-33); Albumin Level 3.3 g/dL (3.5-5.2); Alkaline Phosphatase 64 U/L (35-105); Anion Gap 16.2 (5-19); Aspartate Amino Transferase 25 U/L (0-32); Blood Urea Nitrogen 14 mg/dL (8-23); Calcium 7.7 mg/dL (8.5-10.5); Carbon Dioxide 21 mmol/L (22-29); Chloride 99 mmol/L (98-107); Glucose 140 mg/dL (65-115); Magnesium 1.7 mg/dL (1.7-2.3); Osmolality Calculated 277 mOsm/kg (285-295); Phosphorus 3.5 mg/dL (2.5-4.5); Potassium 4.2 mmol/L (3.5-5.1); Sodium 132 mmol/L (136-145); Total Bilirubin 0.3 mg/dL (0.15-1.2); Total Protein 6.3 g/dL (6.6-8.7)
[2022-12-09 06:29] LABS: Estmated Average Glucose 105; Hemoglobin A1C 5.3 % (4.0-6.0)
[2022-12-09] MEDS: TRAMadol 50 mg Tablet PO (06:32)
[2022-12-09 07:27] LABS: Folate Level > 20.0 ng/mL (4.8-37.3)
[2022-12-09] MEDS: chlorhexidine gluconate 0.12% UDC 15 mL 30 ML MUCOUS MEM ×4 (08:32→20:34)
[2022-12-09] MEDS: enoxaparin 30 mg/0.3 mL Syringe SUBCUT (08:32)
[2022-12-09] MEDS: mupirocin oint 22 gm 1 APPLIC NASAL ×2 (08:33→18:00)
[2022-12-09] MEDS: docusate sodium 100 mg Capsule PO ×2 (08:34→18:00)
[2022-12-09] MEDS: multivitamin therapeutic Tablet 1 TAB PO (08:34)
[2022-12-09] MEDS: famotidine 20 mg Tablet PO ×2 (08:34→18:00)
[2022-12-09] MEDS: calcium carb-vit d 600mg/400unit 1 Tablet 1 EACH PO ×2 (08:34→18:00)
[2022-12-09] MEDS: aspirin 325 mg Tablet PO (08:34)
[2022-12-09] MEDS: iron polysaccharide complex 150 mg Capsule PO ×2 (08:34→18:00)
[2022-12-09] MEDS: HYDROcodone-acetaminophen 5-325 mg Tablet 1 TAB PO ×3 (08:34→20:52)
--- NOTE | 2022-12-09 09:12 | PM.PN ---
Subjective Subjective: Patient seen evaluated this morning patient is doing well pain controlled she is about to work with therapy today. Hemoglobin 10.1. Postop day 1 from a left femur trochanteric nail. Patient's goals she would like to return home at discharge. We will work with case management. Vitals/I&O/Wt Last Vital Signs Temp 98.7 F 12/09/22 07:45 Pulse 72 12/09/22 07:45 Resp 16 12/09/22 07:45 BP 96/58 12/09/22 07:45 Pulse Ox 91 12/09/22 07:45 O2 Del Method Nasal Cannula 12/09/22 04:00 O2 Flow Rate 2 12/09/22 04:00 12/08/22 12/09/22 12/09/22 22:59 06:59 14:59 Intake Total 1740 / 1740 50 / 1790 240 / 240 Output Total 425 / 425 300 / 725 Balance 1315 / 1315 -250 / 1065 240 / 240 Weight last 48 hrs Weight 170 lb Physical Exam Narrative: Dressings of the left hip clean dry and intact. Patient is able to tolerate logroll examination. She is able to wiggle her toes plantarflex and dorsiflex ankle sensations intact to light touch distally distal pulses are palpable toes are warm well perfused compartments are soft compressible normal postoperative swelling and tenderness to palpation left hip. Urinary Catheter Management: 2-way Urethral Latex: Cath Placed During This Visit: yes Urinary Catheter Date of Insertion: 12/08/22 Stewart Latex: Cath Placed During This Visit: yes, but has since been removed by the nurse Reason for Continuing Indwelling Catheter: Decision to DC Catheter Date Urinary Catheter Removed: 12/09/22 Time Urinary Catheter Discontinued: 06:40 Data 12/09/22 05:17 12/09/22 05:17 Xray Ortho: My impression: X-rays postoperative left intertrochanteric femur fracture show stable reduction and interval placement of the left femur trochanteric nail. Stable fixation and reduction noted. A&P Assessment and plan (1) Closed intertrochanteric fracture of left hip: Plan Pain control Weight-bear as tolerated left lower extremity DVT prophylaxis (Lovenox) Complete postoperative antibiotics Internal medicine on board as primary A.m. labs as well as postoperative x-rays reviewed Ortho will continue to monitor Dressings clean dry and intact change as needed We will follow-up in the orthopedic office in 2 weeks Ortho will continue to follow and likely sign off tomorrow if patient continues to progress postoperatively. Attestations Medical Necessity Statement*: Ongoing care left intertrochanteric femur fracture Coding Level of Care Code Acute Code for [facility] Diagnoses Closed intertrochanteric fracture of left hip S72.142A Time Spent (min) 20
[2022-12-09] MEDS: sodium chloride 0.9% 1,000 ML 75 ML IV (11:24)
--- NOTE | 2022-12-09 14:02 | USCV_ITS ---
Adriano Grubbs Age: 76 Gender: F : 1945 Exam Date: 12/09/2022 12:06 Ordering Phys: Ben Paez MD Technologist: CHHAYA [place] [facility] [place]: hypertension BP: / HR: Rhythm: Sinus Technical Quality: Adequate MEASUREMENTS (Male / Female) Normal Values FINDINGS Left Ventricle Normal left ventricular size, systolic function and wall thickness ejection fraction estimated to be about 60 to 65%, with no regional wall motion abnormalities. Normal left ventricular wall thickness. Normal diastolic filling pattern. Right Ventricle The right ventricle is normal in size and function. Right Atrium The right atrium is normal in size. Left Atrium The left atrium is normal in size. Mitral Valve Structurally normal mitral valve without significant stenosis or prolapse. There is trivial mitral regurgitation. Aortic Valve Structurally normal aortic valve without significant sclerosis or stenosis. There is no aortic regurgitation. Tricuspid Valve Structurally normal tricuspid valve without significant stenosis. There is trivial regurgitation. Pulmonary artery systolic pressure is normal. Pulmonic Valve Structurally normal pulmonic valve without significant stenosis. There is no pulmonic regurgitation. Pericardium Normal pericardium without effusion. Aorta Normal ascending aorta dimension. IVC The inferior vena cava appears normal. CONCLUSIONS Kylie Rosales MD (Electronically Signed) Final Date: 10 December 2022 10:58 S
--- NOTE | 2022-12-09 14:15 | PM.PN ---
Subjective Subjective: No acute events overnight. Underwent ORIF yesterday. Tolerated procedure well. Today morning seen sitting up in chair. Complaining of pain. Worked well with physical therapy. Denies any nausea, vomiting, headache. Has remained hemodynamically stable. Blood work appreciated for hemoglobin down to 10, sodium stable at 132, stable creatinine, A1c of 5.3 Vitals/I&O/Wt Last Vital Signs Temp 97.7 F 12/09/22 11:53 Pulse 79 12/09/22 11:53 Resp 17 12/09/22 11:53 BP 105/62 12/09/22 11:53 Pulse Ox 92 12/09/22 11:53 O2 Del Method Room Air 12/09/22 09:12 O2 Flow Rate 2 12/09/22 08:00 12/08/22 12/09/22 12/09/22 22:59 06:59 14:59 Intake Total 1740 / 1740 50 / 1790 1410 / 1410 Output Total 425 / 425 300 / 725 Balance 1315 / 1315 -250 / 1065 1410 / 1410 Weight last 48 hrs Weight 77.111 kg Physical Exam Narrative: General: No acute distress, AO x3 HEENT: PERRLA, pupils bilaterally equal and reactive Chest: Normal vesicular breath sounds, no added sounds, equal good air entry bilaterally CVS: S1-S2 regular, no murmurs, no tachycardia, no gallops, no rubs Abdomen: Soft, nontender, no organomegaly, bowel sounds present Neuro: No focal deficits, no facial deformity, AO x3, power 5/5 in all limbs Extremity: Surgically bandaged, no soakage Urinary Catheter Management: 2-way Urethral Latex: Cath Placed During This Visit: yes Urinary Catheter Date of Insertion: 12/08/22 Stewart Latex: Cath Placed During This Visit: yes, but has since been removed by the nurse Reason for Continuing Indwelling Catheter: Decision to DC Catheter Date Urinary Catheter Removed: 12/09/22 Time Urinary Catheter Discontinued: 06:40 Data 12/09/22 05:17 12/09/22 05:17 A&P Assessment and plan (1) Closed intertrochanteric fracture of left hip: Post-ORIF day 1. PT. Started on anticoagulation with Lovenox. Monitor hemoglobin. DC Stewart. DC fluids. Perioperative antibiotics as per orthopedic team. [place] 5 mg every 6 hourly as needed, Dilaudid 0.5 every 4 hours as needed for pain. Start on Celebrex twice daily for 2 days. Monitor hemoglobin. (2) Hypertension: Goal of pressure less than 140/90 mmHg. Blood pressure slightly soft today. Hold off on home dose of lisinopril for now. Continue to monitor blood pressure and start when needed. (3) Palpitations: Been worked up as an outpatient. Event monitor showed no A-fib. Continue to monitor on telemetry. Plan Syncope and collapse: Mechanical fall today. 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 Associated with hypotension as per family. Event monitor done as an outpatient negative for atrial fibrillation. Continue to monitor. Carotid ultrasound, echocardiogram results awaited. Appreciate iron panel, TSH, B12 and folate levels. CODE STATUS: Discussed in detail with the patient. Full code. Cardiac diet Famotidine for PUD prophylaxis. Foot pumps for DVT prophylaxis. Discharge planning: Patient would like to go to SNF for further rehabilitation at least for next couple of weeks. Case management alerted. Attestations Medical Necessity Statement*: Requires further hospitalization for post-ORIF care while safe discharge planning is sought. Diagnoses Closed intertrochanteric fracture of left hip S72.142A Hypertension I10 Palpitations R00.2
[2022-12-09] MEDS: CELEcoxib 100 mg Capsule PO (18:00)
[2022-12-10] VITALS (9 sets, daily range): BP systolic 94–119; BP diastolic 54–72; PULSE 66–86; RESP 16–20; TEMP 36.5–36.9; O2SAT 92–96; BMI 28.3
[2022-12-10] MEDS: HYDROcodone-acetaminophen 5-325 mg Tablet 1 TAB PO ×4 (03:49→21:56)
[2022-12-10 05:33] LABS: Basophils % 0.4 %; Eosinophils # 0.1 10^3/uL (0.0-0.8); Eosinophils % 0.9 %; Hemoglobin 8.3 g/dL (11.5-15.3); Lymphocytes % 25.8 %; Mean Corpuscular HGB Conc 33.2 g/dL (30.0-36.0); Mean Corpuscular Hemoglobin 30.7 pg (28.0-34.0); Mean Corpuscular Volume 92.6 fl (81-99); Mean Platelet Volume 10.3 fL (7.4-10.4); Monocytes # 0.9 10^3/uL (0.2-0.9); Monocytes % 12.2 %; Neutrophils # 4.57 10^3/uL (1.8-7.7); Neutrophils % 60.3 %; Nucleated Red Blood Cells % 0 %; Platelet Count 150 10^3/cmm (130-400); Red Cell Distribution Width 12.1 % (12.1-15.1); White Blood Count 7.6 10^3/uL (4.0-10.0)
[2022-12-10 05:55] LABS: Alanine Aminotransferase 7 U/L (0-33); Albumin Level 3.1 g/dL (3.5-5.2); Alkaline Phosphatase 61 U/L (35-105); Anion Gap 13.2 (5-19); Aspartate Amino Transferase 22 U/L (0-32); Blood Urea Nitrogen 13 mg/dL (8-23); Calcium 7.8 mg/dL (8.5-10.5); Carbon Dioxide 23 mmol/L (22-29); Chloride 100 mmol/L (98-107); Globulin 2.6 g/dL (1.3-4.6); Glucose 91 mg/dL (65-115); Osmolality Calculated 274 mOsm/kg (285-295); Potassium 4.2 mmol/L (3.5-5.1); Sodium 132 mmol/L (136-145); Total Bilirubin 0.3 mg/dL (0.15-1.2); Total Protein 5.7 g/dL (6.6-8.7)
[2022-12-10] MEDS: chlorhexidine gluconate 0.12% UDC 15 mL 30 ML MUCOUS MEM ×3 (08:41→20:55)
[2022-12-10] MEDS: CELEcoxib 100 mg Capsule PO ×2 (08:42→17:33)
[2022-12-10] MEDS: calcium carb-vit d 600mg/400unit 1 Tablet 1 EACH PO ×2 (08:42→17:33)
[2022-12-10] MEDS: multivitamin therapeutic Tablet 1 TAB PO (08:42)
[2022-12-10] MEDS: docusate sodium 100 mg Capsule PO ×2 (08:42→17:33)
[2022-12-10] MEDS: famotidine 20 mg Tablet PO ×2 (08:42→17:34)
[2022-12-10] MEDS: iron polysaccharide complex 150 mg Capsule PO ×2 (08:42→17:33)
[2022-12-10] MEDS: enoxaparin 30 mg/0.3 mL Syringe SUBCUT (08:42)
[2022-12-10] MEDS: mupirocin oint 22 gm 1 APPLIC NASAL ×2 (08:43→17:34)
--- NOTE | 2022-12-10 08:54 | ANE.PACU2 ---
Inpatient post-anesthesia follow up: Vital signs: Temperature 97.8 F Pulse Rate 76 Respiratory Rate 16 Blood Pressure 102/63 Pulse Oximetry 94 Oxygen Delivery Me thod Room Air Oxygen Flow Rate 2 Fraction of Inspir ed Oxygen Hydration adequate: Yes Nausea and vomiting: No Pain level: 1 Mental status: Baseline
--- NOTE | 2022-12-10 11:44 | PM.PN ---
Subjective Subjective: Patient seen and examined this morning. She is doing well she is done well with therapy she still working with case management whether for discharge home with home health care versus penitentiary facility. Pain is controlled with medications. Vitals/I&O/Wt Last Vital Signs Temp 97.8 F 12/10/22 07:36 Pulse 76 12/10/22 07:36 Resp 16 12/10/22 07:36 BP 102/63 12/10/22 07:36 Pulse Ox 94 12/10/22 07:36 O2 Del Method Room Air 12/10/22 07:36 O2 Flow Rate 2 12/10/22 08:00 12/09/22 12/10/22 12/10/22 22:59 06:59 14:59 Intake Total 170 / 1832.5 200 / 2032.5 240 / 240 Balance 170 / 1832.5 200 / 2032.5 240 / 240 Physical Exam Narrative: Dressings of the left hip clean dry and intact. Patient is able to tolerate logroll examination. She is able to wiggle her toes plantarflex and dorsiflex ankle sensations intact to light touch distally distal pulses are palpable toes are warm well perfused compartments are soft compressible normal postoperative swelling and tenderness to palpation left hip. Urinary Catheter Management: 2-way Urethral Latex: Cath Placed During This Visit: yes Urinary Catheter Date of Insertion: 12/08/22 Stewart Latex: Cath Placed During This Visit: yes, but has since been removed by the nurse Reason for Continuing Indwelling Catheter: Decision to DC Catheter Date Urinary Catheter Removed: 12/09/22 Time Urinary Catheter Discontinued: 06:40 Data 12/10/22 17:30 12/10/22 04:25 Other Labs: A.m. hemoglobin 8.3 on 12/10/2022 A&P Assessment and plan (1) Closed intertrochanteric fracture of left hip: Plan Pain control Weight-bear as tolerated left lower extremity DVT prophylaxis (Lovenox) Internal medicine on board as primary A.m. labs reviewed Dressings clean dry and intact change as needed We will follow-up in the orthopedic office in 2 weeks Case management for discharge planning Patient stable from orthopedic standpoint. No further intervention required at this time dressings clean dry and intact. Patient follow-up in the orthopedic office in 2 weeks. This point time orthopedic surgery team will sign off patient at this time and follow peripherally if there is any questions pertaining to patient's care feel free to contact myself. Otherwise patient discharge instructions as well as prescriptions are in chart. Patient to follow-up in the orthopedic office in 2 weeks. Patient understands and agrees with current plan. All questions answered. Attestations Medical Necessity Statement*: Ongoing care left hip fracture Coding Level of Care Code Acute Code for Chg Fwd Diagnoses Closed intertrochanteric fracture of left hip S72.142A Time Spent (min) 25
--- NOTE | 2022-12-10 15:04 | P.PN_ITS ---
Subjective Subjective: No acute events overnight. Patient states she is feeling better. Laying comfortably in bed. Worked with physical therapy today. Denies any nausea, vomiting, headache. Denies any episodes of dizziness. Telemetry has remained stable Blood work today appreciated for a hemoglobin down to 8.3 today, sodium of 132, stable creatinine. Vitals appreciated to be soft blood pressures but stable. Vitals/I&O/Wt Last Vital Signs Temp 97.7 F 12/10/22 12:00 Pulse 77 12/10/22 12:00 Resp 16 12/10/22 12:00 BP 94/54 12/10/22 12:00 Pulse Ox 94 12/10/22 12:00 O2 Del Method Room Air 12/10/22 12:00 O2 Flow Rate 2 12/10/22 08:00 12/10/22 12/10/22 12/10/22 06:59 14:59 22:59 Intake Total 200 / 2032.5 480 / 480 Balance 200 / 2032.5 480 / 480 Weight last 48 hrs Weight 77.111 kg Physical Exam Narrative: General: No acute distress, AO x3 HEENT: PERRLA, pupils bilaterally equal and reactive Chest: Normal vesicular breath sounds, no added sounds, equal good air entry bilaterally CVS: S1-S2 regular, no murmurs, no tachycardia, no gallops, no rubs Abdomen: Soft, nontender, no organomegaly, bowel sounds present Neuro: No focal deficits, no facial deformity, AO x3, power 5/5 in all limbs Extremity: Surgically bandaged, no soakage Urinary Catheter Management: 2-way Urethral Latex: Cath Placed During This Visit: yes Urinary Catheter Date of Insertion: 12/08/22 Stewart Latex: Cath Placed During This Visit: yes, but has since been removed by the nurse Reason for Continuing Indwelling Catheter: Decision to DC Catheter Date Urinary Catheter Removed: 12/09/22 Time Urinary Catheter Discontinued: 06:40 Data 12/10/22 04:25 12/10/22 04:25 A&P Assessment and plan (1) Closed intertrochanteric fracture of left hip: Post-ORIF day 2. PT. Started on anticoagulation with Lovenox. Monitor hemoglobin. Hemoglobin down to 8.3 today from 10.1 yesterday and 13 perioperatively. Repeat hemoglobin hematocrit in evening. Perioperative antibiotics as per orthopedic team. [place] 5 mg every 6 hourly as needed, Dilaudid 0.5 every 4 hours as needed for pain. Start on Celebrex twice daily for 2 days. Monitor hemoglobin. (2) Hypertension: Goal of pressure less than 140/90 mmHg. Blood pressure slightly soft today. Hold off on home dose of lisinopril for now. Continue to monitor blood pressure and start when needed. (3) Palpitations: Been worked up as an outpatient. Event monitor showed no A-fib. Continue to monitor on telemetry. (4) Postoperative anemia: Plan Syncope and collapse: Mechanical fall today. 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 Associated with hypotension as per family. Event monitor done as an outpatient negative for atrial fibrillation. Continue to monitor. Carotid ultrasound, echocardiogram results awaited. Appreciate iron panel, TSH, B12 and folate levels. CODE STATUS: Discussed in detail with the patient. Full code. Cardiac diet Famotidine for PUD prophylaxis. Foot pumps for DVT prophylaxis. Plan for today: Continue with PT. Repeat hemoglobin and hematocrit in afternoon. If hemoglobin less than 8 will transfuse monitor PRBC. Continue to hold off on home dose of lisinopril for soft blood pressures. Continue to monitor blood pressures daily. Echocardiogram results appreciated for normal EF. Carotid Dopplers awaited. Discharge planning. Awaiting SNF placement. Discharge planning: Patient would like to go to SNF for further rehabilitation at least for next couple of weeks. Case management alerted. Attestations Medical Necessity Statement*: Requires further hospitalization for postoperative care, post-ORIF while hemoglobin is monitored and safe discharge planning is sought. Diagnoses Closed intertrochanteric fracture of left hip S72.142A Hypertension I10 Palpitations R00.2 Postoperative anemia D64.9
[2022-12-10 17:48] LABS: Hematocrit 25.9 % (37.0-47.0); Hemoglobin 8.5 g/dL (11.5-15.3)
--- NOTE | 2022-12-10 18:34 | PC.NURSE ---
Patient arrived to floor via wc from ED, c/o pain to abdomen that was relieved by oral pain medication per AUG. Patient resting in bed, VSS, AAOx4, OOBT bathroom, no needs at this time or new events. Room clean and clutter free with call light within reach.
[2022-12-11] VITALS (8 sets, daily range): BP systolic 100–134; BP diastolic 53–82; PULSE 72–91; RESP 17–19; TEMP 36.5–36.9; O2SAT 91–95
[2022-12-11] MEDS: docusate sodium 100 mg Capsule PO ×2 (08:04→17:37)
[2022-12-11] MEDS: calcium carb-vit d 600mg/400unit 1 Tablet 1 EACH PO ×2 (08:04→17:37)
[2022-12-11] MEDS: enoxaparin 30 mg/0.3 mL Syringe SUBCUT (08:04)
[2022-12-11] MEDS: HYDROcodone-acetaminophen 5-325 mg Tablet 1 TAB PO ×2 (08:04→16:12)
[2022-12-11] MEDS: chlorhexidine gluconate 0.12% UDC 15 mL 30 ML MUCOUS MEM ×2 (08:05→16:13)
[2022-12-11] MEDS: famotidine 20 mg Tablet PO ×2 (08:05→17:37)
[2022-12-11] MEDS: CELEcoxib 100 mg Capsule PO ×2 (08:05→17:37)
[2022-12-11] MEDS: iron polysaccharide complex 150 mg Capsule PO ×2 (08:06→17:37)
[2022-12-11] MEDS: mupirocin oint 22 gm 1 APPLIC NASAL (08:06)
[2022-12-11] MEDS: multivitamin therapeutic Tablet 1 TAB PO (08:06)
--- NOTE | 2022-12-11 11:12 | PC.SOCIAL ---
IMM Update pg 2 of IMM updated and reviewed w/ patient. Copy provided and Copy dated, initialed and placed in chart.
--- NOTE | 2022-12-11 17:58 | PM.PN ---
Subjective Subjective: She reports that she is doing all right. Denies significant pain. No chest pain or trouble breathing. Vitals/I&O/Wt Last Vital Signs Temp 98.1 F 12/11/22 16:00 Pulse 80 12/11/22 16:00 Resp 18 12/11/22 16:00 BP 129/73 12/11/22 16:00 Pulse Ox 95 12/11/22 16:00 O2 Del Method Room Air 12/11/22 07:56 O2 Flow Rate 2 12/10/22 08:00 12/11/22 12/11/22 12/11/22 06:59 14:59 22:59 Intake Total 840 / 840 Balance 840 / 840 Weight last 48 hrs Weight 81.817 kg Weight 77.111 kg Physical Exam Const: COMMON NORMALS: patient oriented x3 and alert GENERAL APPEARANCE: cooperative ORIENTATION/CONSCIOUSNESS: Yes awake HENMT: COMMON NORMALS: oropharynx normal Neck/C-Spine: COMMON NORMALS: no JVD Resp: COMMON NORMALS: normal respiratory effort and clear to auscultation bilaterally AUSCULTATION: clear to auscultation bilaterally Cardio: COMMON NORMALS: no JVD, regular rhythm, S1 normal heart sound present, S2 normal heart sound present and No murmurs present (Cardio) RHYTHM: regular rhythm HEART SOUNDS: S1 normal heart sound present and S2 normal heart sound present GI: COMMON NORMALS: Normal to inspection, nondistended, normoactive bowel sounds present, Soft to palpation and non-tender PALPATION: Yes Soft to palpation Extremity: COMMON NORMALS: no joint enlargement and no pedal edema OTHER: L hip dressing, bruising noted, no bleeding. Minimal swelling LLE. Perfused. Neuro: COMMON NORMALS: patient oriented x3 and moves all extremities SENSORIUM/ORIENTATION: Yes alert Skin: COMMON NORMALS: no rashes or lesions noted GENERAL SKIN EXAM: no rashes or lesions noted Urinary Catheter Management: 2-way Urethral Latex: Cath Placed During This Visit: yes Urinary Catheter Date of Insertion: 12/08/22 Stewart Latex: Cath Placed During This Visit: yes, but has since been removed by the nurse Reason for Continuing Indwelling Catheter: Decision to DC Catheter Date Urinary Catheter Removed: 12/09/22 Time Urinary Catheter Discontinued: 06:40 Data 12/10/22 17:30 12/10/22 04:25 A&P Assessment and plan (1) Closed intertrochanteric fracture of left hip: Still requiring hydrocodone for pain control, will renew, stop tramadol. Recheck hemoglobin noted 8.5. Prior 8.2. Mild improvement. Recheck CBC. DVT prophylaxis with Lovenox. Discussed in rounds with case management, working on arrangements for rehabilitation. Ortho note reviewed. (2) Hypertension: BP noted at goal. Goal of pressure less than 140/90 mmHg. Blood pressure slightly soft today. Hold off on home dose of lisinopril for now. Continue to monitor blood pressure and start when needed. (3) Palpitations: Been worked up as an outpatient. Event monitor showed no A-fib. Continue to monitor on telemetry. (4) Postoperative anemia: Plan Syncope and collapse: Echocardiogram noted, normal EF, normal diastolic function, no RWMA, without significant valvular abnormality. Carotid Doppler looks like was ordered, but per documentation appears she declined the test. Continue to monitor. TSH, B12 and folate levels were obtained and noncontributing. 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 Associated with hypotension as per family. Event monitor done as an outpatient negative for atrial fibrillation. Discharge planning: discussed with case management, arrangements for motivation underway. Attestations Medical Necessity Statement*: Continue admit for med management following left hip fracture and repair, fall, prior episodes of syncope. Diagnoses Closed intertrochanteric fracture of left hip S72.142A Hypertension I10 Palpitations R00.2 Postoperative anemia D64.9
[2022-12-12] VITALS (9 sets, daily range): BP systolic 115–129; BP diastolic 70–73; PULSE 76–86; RESP 16–19; TEMP 36.3–36.8; O2SAT 94–95
[2022-12-12] MEDS: HYDROcodone-acetaminophen 5-325 mg Tablet 1 TAB PO ×3 (00:02→15:07)
[2022-12-12 05:22] LABS: Hemoglobin 7.7 g/dL (11.5-15.3)
[2022-12-12] MEDS: docusate sodium 100 mg Capsule PO ×2 (08:14→17:45)
[2022-12-12] MEDS: multivitamin therapeutic Tablet 1 TAB PO (08:14)
[2022-12-12] MEDS: iron polysaccharide complex 150 mg Capsule PO ×2 (08:14→17:45)
[2022-12-12] MEDS: CELEcoxib 100 mg Capsule PO (08:14)
[2022-12-12] MEDS: chlorhexidine gluconate 0.12% UDC 15 mL 30 ML MUCOUS MEM ×4 (08:14→21:17)
[2022-12-12] MEDS: famotidine 20 mg Tablet PO (08:14)
[2022-12-12] MEDS: calcium carb-vit d 600mg/400unit 1 Tablet 1 EACH PO ×2 (08:14→17:45)
[2022-12-12] MEDS: enoxaparin 30 mg/0.3 mL Syringe SUBCUT (08:15)
[2022-12-12] MEDS: mupirocin oint 22 gm 1 APPLIC NASAL ×2 (08:15→17:45)
[2022-12-12 10:36] LABS: SARS Covid-2 Antigen negative (Negative)
[2022-12-12] MEDS: pantoprazole 40 mg SDV IVP (13:48)
--- NOTE | 2022-12-12 16:57 | P.MISC_ITS ---
Miscellaneous Note Purpose of Documentation: Orthopedic note update: I was asked to evaluate patient by the hospitalist as patient was having ecchymosis and swelling in concerns for possible postoperative hematoma to the left thigh after patient underwent a left trochanteric femur nail. Patient's hemoglobin is steadily dropped. Her vital signs have remained stable and afebrile. On my inspection patient sitting up and comfortably talking with her family in the room. She has no signs of pain or discomfort her thigh compartments are soft and compressible. Gross motor and sensory intact of the left lower extremity. Her dressing is clean dry and intact. It is evident she has normal postoperative ecchymosis as well as some dependent edema noted along the posterior and medial aspect of the thigh this does not appear to have any significant focal accumulation or anything that would merit any surgical interv ention I feel this is just normal postoperative dependent edema as well as bruising and ecchymosis from her surgery as well as fracture. No interventions required at this time. Will defer to hospitalist for possible transfusion if needed. No further orthopedic surgical intervention required at this time we will follow patient peripherally. Patient follow-up with me in the office in 2 weeks. Patient to continue with DVT prophylaxis postoperatively as well as pain medication she will be allowed weightbearing as tolerated to right lower extremity discharge instructions and medications are in chart. All questions answered. Patient family understand agree with current plan. All questions answered. Ba Olvera, /orthopedic surgery
--- NOTE | 2022-12-12 21:15 | P.PN_ITS ---
Subjective Subjective: She is doing quite all right. At time of my visit she had just finished with physical therapy and feels encouraged that she will continue to improve. Denies chest pain or pressure. Not short of breath. Not lightheaded. Discussed with her additional decrease in hemoglobin up to 7.7. Notes a large bruise on the medial left thigh. On questioning also reports having dark stools here in the h ospital. Vitals/I&O/Wt Last Vital Signs Temp 97.9 F 12/12/22 19:27 Pulse 86 12/12/22 19:27 Resp 16 12/12/22 19:27 BP 115/71 12/12/22 19:27 Pulse Ox 95 12/12/22 19:27 O2 Del Method Room Air 12/12/22 19:27 O2 Flow Rate 2 12/10/22 08:00 12/12/22 12/12/22 12/12/22 06:59 14:59 22:59 Intake Total 120 / 1320 1200 / 1200 240 / 1440 Balance 120 / 1320 1200 / 1200 240 / 1440 Weight last 48 hrs Weight 82.554 kg Weight 81.817 kg Physical Exam Narrative: Sitting up in chair. Const: COMMON NORMALS: patient oriented x3 and alert GENERAL APPEARANCE: cooperative ORIENTATION/CONSCIOUSNESS: Yes awake HENMT: COMMON NORMALS: oropharynx normal Neck/C-Spine: COMMON NORMALS: no JVD Resp: COMMON NORMALS: normal respiratory effort and clear to auscultation bilaterally AUSCULTATION: clear to auscultation bilaterally Cardio: COMMON NORMALS: no JVD, regular rhythm, S1 normal heart sound present, S2 normal heart sound present and No murmurs present (Cardio) RHYTHM: regular rhythm HEART SOUNDS: S1 normal heart sound present and S2 normal heart sound present GI: COMMON NORMALS: Normal to inspection, nondistended, normoactive bowel sounds present, Soft to palpation and non-tender PALPATION: Yes Soft to palpation Extremity: COMMON NORMALS: no joint enlargement and no pedal edema OTHER: L hip dressing, bruising noted, no bleeding. Large bruise, hematoma left inner thigh. Minimal swelling LLE. Perfused. Neuro: COMMON NORMALS: patient oriented x3 and moves all extremities SEN SORIUM/ORIENTATION: Yes alert Skin: COMMON NORMALS: no rashes or lesions noted GENERAL SKIN EXAM: no rashes or lesions noted Urinary Catheter Management: 2-way Urethral Latex: Cath Placed During This Visit: yes Urinary Catheter Date of Insertion: 12/08/22 Stewart Latex: Cath Placed During This Visit: yes, but has since been removed by the nurse Reason for Continuing Indwelling Catheter: Decision to DC Catheter Date Urinary Catheter Removed: 12/09/22 Time Urinary Catheter Discontinued: 06:40 Data 12/12/22 04:51 12/10/22 04:25 A&P Assessment and plan (1) Acute anemia: Acute worsening in hemoglobin down to 7.7. With noted bruising, hematoma medial left thigh. Discussed with orthopedics who reevaluated her. No sign of compartment syndrome. Reassess hemoglobin. Monitor for possibility of life- threatening anemia/bleeding. Discussed with her prophylactic anticoagulation with risk of DVT. Discussed with her additionally she states has been having some dark stools, discussed with her possible GI bleed. Although is also on iron. But has also take an occasional NSAID. Discussed with her to avoid NSAIDs. Stop famotidine. Switch to 40 mg IV Protonix twice daily. Requested Hemoccult. Follow-up blood counts requested. Discussed with her consideration of t ransfusion in case of worsening anemia. Check iron studies. (2) Closed intertrochanteric fracture of left hip: Follow-up acute anemia as above. She is encouraged by her progress with PT. She otherwise has been accepted for continued rehabilitation at SNF, but discharge is delayed due to acute anemia as above. Discussed with case management. DVT prophylaxis with Lovenox. Discussed in rounds with case management, working on arrangements for rehabilitation. (3) Hypertension: BP noted at goal. Goal of pressure less than 140/90 mmHg. Blood pressure slightly soft today. Hold off on home dose of lisinopril for now. Continue to monitor blood pressure and start when needed. (4) Palpitations: Been worked up as an outpatient. Event monitor showed no A-fib. Continue to monitor on telemetry. (5) Postoperative anemia: Plan Syncope and collapse: Echocardiogram noted, normal EF, normal diastolic function, no RWMA, without significant valvular abnormality. Carotid Doppler looks like was ordered, but per documentation appears she declined the test. Continue to monitor. TSH, B12 and folate levels were obtained and noncontributing. 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 Associated with hypotension as per family. Event monitor done as an outpatient negative for atrial fibrillation. Discharge planning: discussed with case management, arrangements for motivation underway. Attestations Medical Necessity Statement*: Continue admission for assessment management of acute anemia, possible GI bleed, postoperative care after left hip fracture and repair. Diagnoses Acute anemia D64.9 Closed intertrochanteric fracture of left hip S72.142A Hypertension I10 Palpitations R00.2 Postoperative anemia D64.9
[2022-12-12] MEDS: pantoprazole DR 40 mg Tablet PO (21:18)
[2022-12-13] VITALS (8 sets, daily range): BP systolic 109–137; BP diastolic 56–75; PULSE 70–86; RESP 16–20; TEMP 36.4–37.1; O2SAT 93–97
[2022-12-13] MEDS: HYDROcodone-acetaminophen 5-325 mg Tablet 1 TAB PO ×4 (00:59→20:37)
[2022-12-13 06:05] LABS: Hemoglobin 7.8 g/dL (11.5-15.3)
[2022-12-13 06:52] LABS: Ferritin 139 ng/mL (15-150); Iron 63 ug/dL (37-145); Percent Saturation 41.4 % (20-50); Total Iron Binding Capacity 152 mcg/dl; Unsaturated Iron Binding 89 ug/dL (112-347)
[2022-12-13] MEDS: iron polysaccharide complex 150 mg Capsule PO ×2 (08:09→17:28)
[2022-12-13] MEDS: enoxaparin 30 mg/0.3 mL Syringe SUBCUT (08:09)
[2022-12-13] MEDS: pantoprazole DR 40 mg Tablet PO ×2 (08:09→17:28)
[2022-12-13] MEDS: docusate sodium 100 mg Capsule PO ×2 (08:09→17:27)
[2022-12-13] MEDS: multivitamin therapeutic Tablet 1 TAB PO (08:09)
[2022-12-13] MEDS: calcium carb-vit d 600mg/400unit 1 Tablet 1 EACH PO ×2 (08:10→17:28)
[2022-12-13] MEDS: chlorhexidine gluconate 0.12% UDC 15 mL 30 ML MUCOUS MEM ×3 (11:33→20:37)
[2022-12-13] MEDS: mupirocin oint 22 gm 1 APPLIC NASAL ×2 (11:33→17:27)
--- NOTE | 2022-12-13 21:35 | PM.PN ---
Subjective Subjective: She is bothered by some pain in her left thigh, states it feels perhaps somewhat heavier which made walking slightly more difficult. Vitals/I&O/Wt Last Vital Signs Temp 98.0 F 12/13/22 20:15 Pulse 70 12/13/22 20:15 Resp 17 12/13/22 20:15 BP 119/72 12/13/22 20:15 Pulse Ox 95 12/13/22 20:15 O2 Del Method Room Air 12/13/22 15:24 O2 Flow Rate 2 12/10/22 08:00 12/13/22 12/13/22 12/13/22 06:59 14:59 22:59 Intake Total 840 / 840 360 / 1200 Balance 840 / 840 360 / 1200 Weight last 48 hrs Weight 82.1 kg Weight 82.554 kg Physical Exam Narrative: Sitting up in bed. Const: COMMON NORMALS: patient oriented x3 and alert GENERAL APPEARANCE: cooperative ORIENTATION/CONSCIOUSNESS: Yes awake HENMT: COMMON NORMALS: oropharynx normal Neck/C-Spine: COMMON NORMALS: no JVD Resp: COMMON NORMALS: normal respiratory effort and clear to auscultation bilaterally AUSCULTATION: clear to auscultation bilaterally Cardio: COMMON NORMALS: no JVD, regular rhythm, S1 normal heart sound present, S2 normal heart sound present and No murmurs present (Cardio) RHYTHM: regular rhythm HEART SOUNDS: S1 normal heart sound present and S2 normal heart sound present GI: COMMON NORMALS: Normal to inspection, nondistended, normoactive bowel sounds present, Soft to palpation and non-tender PALPATION: Yes Soft to palpation Extremity: COMMON NORMALS: no joint enlargement and no pedal edema OTHER: L hip dressing, bruising noted, no bleeding. Large bruise, hematoma left inner post and outer thigh. Mild swelling LLE. Perfused. Neuro: COMMON NORMALS: patient oriented x3 and moves all extremities SENSORIUM/ORIENTATION: Yes alert Skin: COMMON NORMALS: no rashes or lesions noted GENERAL SKIN EXAM: no rashes or lesions noted Urinary Catheter Management: 2-way Urethral Latex: Cath Placed During This Visit: yes Urinary Catheter Date of Insertion: 12/08/22 Stewart Latex: Cath Placed During This Visit: yes, but has since been removed by the nurse Reason for Continuing Indwelling Catheter: Decision to DC Catheter Date Urinary Catheter Removed: 12/09/22 Time Urinary Catheter Discontinued: 06:40 Data 12/13/22 05:03 12/10/22 04:25 A&P Assessment and plan (1) Acute anemia: Bruising with suspected hematoma left thigh. Discussed with her again possibility of GI bleed, although dark stools could be secondary to iron as well. Hemoccult has been ordered, not collected so far. Discussed with her repeat hemoglobin 7.8 today. At risk of severe anemia. At risk of DVT. Additional repeat hemoglobin is requested. Given worsening bruising we will keep again overnight. Discussed w case management. Monitor for possibility of life-threatening anemia/bleeding. Discussed with her prophylactic anticoagulation with risk of DVT. Discussed with her additionally she states has been having some dark stools, discussed with her possible GI bleed. Although is also on iron. But has also take an occasional NSAID. Discussed with her to avoid NSAIDs. Stop famotidine. Switch to 40 mg IV Protonix twice daily. Requested Hemoccult. Follow-up blood counts requested. Discussed with her consideration of transfusion in case of worsening anemia. Noted iron studies, not iron deficient. (2) Closed intertrochanteric fracture of left hip: Follow-up acute anemia as above. She is encouraged by her progress with PT. She otherwise has been accepted for continued rehabilitation at SNF, but discharge is delayed due to acute anemia as above. Discussed with case management. DVT prophylaxis with Lovenox. Discussed in rounds with case management, working on arrangements for rehabilitation. (3) Hypertension: BP noted at goal. Goal of pressure less than 140/90 mmHg. Blood pressure slightly soft today. Hold off on home dose of lisinopril for now. Continue to monitor blood pressure and start when needed. (4) Palpitations: Been worked up as an outpatient. Event monitor showed no A-fib. Continue to monitor on telemetry. (5) Postoperative anemia: Plan Syncope and collapse: Echocardiogram noted, normal EF, normal diastolic function, no RWMA, without significant valvular abnormality. Carotid Doppler looks like was ordered, but per documentation appears she declined the test. Continue to monitor. TSH, B12 and folate levels were obtained and noncontributing. 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 Associated with hypotension as per family. Event monitor done as an outpatient negative for atrial fibrillation. Discharge planning: discussed with case management, arrangements for motivation underway. Attestations Medical Necessity Statement*: Continue admit for med management following left hip fracture and repair, fall, prior episodes of syncope. Diagnoses Acute anemia D64.9 Closed intertrochanteric fracture of left hip S72.142A Hypertension I10 Palpitations R00.2 Postoperative anemia D64.9
[2022-12-14] MEDS: HYDROcodone-acetaminophen 5-325 mg Tablet 1 TAB PO ×3 (01:51→11:33)
[2022-12-14 04:09] VITALS: BP 113/68; PULSE 81; RESP 18; TEMP 36.8; O2SAT 94
[2022-12-14 04:24] LABS: Basophils % 0.4 %; Eosinophils # 0.4 10^3/uL (0.0-0.8); Hematocrit 23.7 % (37.0-47.0); Lymphocytes # 2.4 10^3/uL (0.8-4.8); Lymphocytes % 33.2 %; Mean Corpuscular HGB Conc 33.8 g/dL (30.0-36.0); Mean Corpuscular Hemoglobin 31.6 pg (28.0-34.0); Mean Corpuscular Volume 93.7 fl (81-99); Mean Platelet Volume 9.3 fL (7.4-10.4); Monocytes % 14.4 %; Neutrophils # 3.28 10^3/uL (1.8-7.7); Neutrophils % 45.7 %; Nucleated Red Blood Cells % 0 %; Platelet Count 184 10^3/cmm (130-400); Red Blood Count 2.53 10^6/uL (4.1-5.3); White Blood Count 7.2 10^3/uL (4.0-10.0)
[2022-12-14 05:39] VITALS: PULSE 92
[2022-12-14 07:33] VITALS: BP 152/70; PULSE 87; RESP 16; TEMP 36.7; O2SAT 92
[2022-12-14] MEDS: docusate sodium 100 mg Capsule PO (07:57)
[2022-12-14] MEDS: enoxaparin 40 mg/0.4 mL Syringe SUBCUT (07:57)
[2022-12-14] MEDS: multivitamin therapeutic Tablet 1 TAB PO (07:58)
[2022-12-14] MEDS: pantoprazole DR 40 mg Tablet PO (07:58)
[2022-12-14] MEDS: iron polysaccharide complex 150 mg Capsule PO (07:58)
[2022-12-14] MEDS: calcium carb-vit d 600mg/400unit 1 Tablet 1 EACH PO (07:58)
[2022-12-14] MEDS: chlorhexidine gluconate 0.12% UDC 15 mL 30 ML MUCOUS MEM ×2 (07:59→11:35)
[2022-12-14 10:22] LABS: SARS Covid-2 Antigen negative (Negative)
--- NOTE | 2022-12-14 12:38 | P.DS_ITS ---
Discharge Providers Date of Admission: 12/08/22 11:15 Date of Discharge: December 14, 2022 Attending Provider at Admission: Ben Paez MD Attending Provider at Discharge: Shawn Bradshaw Primary Care Provider: Contreras Jose MD Diagnoses at Discharge Discharge Diagnosis (1) Acute anemia: Status: Acute (2) Closed intertrochanteric fracture of left hip: Status: Acute (3) Hypertension: Status: Acute (4) Palpitations: Status: Acute (5) Postoperative anemia: Status: Acute Reason for Visit Reason for Visit: left hip pain. post fall Hospital Course Hospital Course Pleasant 77-year-old lady with history of HTN, recent evaluation due to palpitations with event monitor which showed no atrial fibrillation, with recent episode of blood pressure decrease at home, reportedly that followed a trip to [facility] on the day she did not drink much in terms of liquids. She presented after mechanical fall with left intertrochanteric hip fracture, was assessed by orthopedics and underwent ORIF repair with medullary nail on 12/08. Underwent additional assessment by echocardiogram which showed no major abnormality. She declined carotid Dopplers. She corrects that she did not have any syncopal episodes. She states that her fall was mechanical. Blood pressures remained steady while in the hospital. To be in a safer side for now please do not resume lisinopril until/unless her blood pressures remain persistently elevated. Consider resuming at lower dose. Trop series, tsh, folate, B12, Mg, P all unremarkable. Hospitalization complicated by anemia, hemoglobin down as low as 7.7, at home on aspirin, this was held. Did continue on prophylactic Lovenox due to risk of D VT. Did not require blood transfusion. Was noted to have left thigh hematoma, bruising for which was reassessed by orthopedics as well. Also reported having some dark stools, although was started on iron in the hospital. Iron is not continued as he is not found to have iron deficiency. Aspirin is not continued as does not appear to have compelling indication at this time, but is asked to revisit with primary provider whether this medication will need to be started in the future. She was started on twice daily 40 mg Protonix. Hemoccult was requested, but had not been obtained. Her anemia has improved. Hemoglobin is stabilized, and has not risen up to 8 today. She is otherwise feeling well, ready to proceed to rehabilitation at SNF. She is asked to follow-up with additional assessment of anemia with possibility of chronic/lower GI bleed. Please follow-up Hemoccult, consider referral for endoscopy. Please follow-up blood counts over the weekend. Physical Exam Narrative: Sitting up in the chair. Reports she is doing well. In good spirits. Const: COMMON NORMALS: patient oriented x3 and alert GENERAL APPEARANCE: cooperative ORIENTATION/CONSCIOUSNESS: Yes awake HENMT: COMMON NORMALS: oropharynx normal Neck/C-Spine: COMMON NORMALS: no JVD Resp: COMMON NORMALS: normal respiratory effort and clear to auscultation bilaterally AUSCULTATION: clear to auscultation bilaterally Cardio: COMMON NORMALS: no JVD, regular rhythm, S1 normal heart sound present, S2 normal heart sound present and No murmurs present (Cardio) RHYTHM: regular rhythm HEART SOUNDS: S1 normal heart sound present and S2 normal heart sound present GI: COMMON NORMALS: Normal to inspection, nondistended, normoactive bowel sounds present, Soft to palpation and non-tender PALPATION: Yes Soft to palpation Extremity: COMMON NORMALS: no joint enlargement and no pedal edema OTHER: L hip dressing, bruising noted, no bleeding. Large bruise, hematoma left inner post and outer thigh. Mild swelling LLE. Perfused. Neuro: COMMON NORMALS: patient oriented x3 and moves all extremities SENSORIUM/ORIENTATION: Yes alert Skin: COMMON NORMALS: no rashes or lesions noted GENERAL SKIN EXAM: no rashes or lesions noted Urinary Catheter Management: 2-way Urethral Latex: Cath Placed During This Visit: yes Urinary Catheter Date of Insertion: 12/08/22 Stewart Latex: Cath Placed During This Visit: yes, but has since been removed by the nurse Reason for Continuing Indwelling Catheter: Decision to DC Catheter Date Urinary Catheter Removed: 12/09/22 Time Urinary Catheter Discontinued: 06:40 Discharge Data Studies Completed and Pending Completed Studies During Hospitalization Category Date Time Status XR chest 1V portable [id number] Stat Exams 12/08/22 10:16 Completed XR femur LT min 2V* [id number] Stat Exams 12/08/22 10:46 Completed XR hip LT 2-3V wo/w pel* [id number] Routine Exams 12/08/22 20:22 Completed XR hip LT 2-3V wo/w pel* [id number] Stat Exams 12/08/22 10:09 Completed XR knee LT 3V* [id number] Stat Exams 12/08/22 10:48 Completed XR pelvis 1-2V* [id number] Stat Exams 12/08/22 10:48 Completed CV. echo complete* [id number] Routine Ultrasound 12/09/22 14:02 Completed Pending at discharge Category Date Time Status Complete Blood Count w/Auto AM LABS Lab 12/15/22 04:00 Ordered Complete Blood Count w/Auto AM LABS Lab 12/16/22 04:00 Ordered Occult Blood Stool [Immunochemical Fecal OCB] Routine Lab 12/12/22 08:23 Uncollected Radiology Impressions Chest X-Ray 12/08/22 10:16 IMPRESSION: No acute chest abnormality. Femur X-Ray 12/08/22 10:46 IMPRESSION: Left hip fracture with intact distal femur and left total knee arthroplasty. Knee X-Ray 12/08/22 10:48 IMPRESSION: Total left knee arthroplasty without abnormality. Pelvis X-Ray 12/08/22 10:48 IMPRESSION: Left hip fracture as above. Hip/Pelvis X-Ray 12/08/22 20:22 IMPRESSION: 1. Left femur surgical hardware in place bridging a previously seen intertrochanteric fracture with postsurgical soft tissue findings about the left hip. 2. Lumbar spine surgical hardware. Laboratory Results WBC 7.2 10^3/uL (4.0-10.0) 12/14/22 03:55 RBC 2.53 10^6/uL (4.1-5.3) L 12/14/22 03:55 Hgb 8.0 g/dL (11.5-15.3) L 12/14/22 03:55 Hct 23.7 % (37.0-47.0) L 12/14/22 03:55 MCV 93.7 fl (81-99) 12/14/22 03:55 MCH 31.6 pg (28.0-34.0) 12/14/22 03:55 MCHC 33.8 g/dL (30.0-36.0) 12/14/22 03:55 RDW 13.0 % (12.1-15.1) 12/14/22 03:55 Plt Count 184 10^3/cmm (130-400) 12/14/22 03:55 MPV 9.3 fL (7.4-10.4) 12/14/22 03:55 Neut % (Auto) 45.7 % 12/14/22 03:55 Lymph % (Auto) 33.2 % 12/14/22 03:55 Desha % (Auto) 14.4 % 12/14/22 03:55 Eos % (Auto) 6.0 % 12/14/22 03:55 Baso % (Auto) 0.4 % 12/14/22 03:55 Neut # (Auto) 3.28 10^3/uL (1.8-7.7) 12/14/22 03:55 Lymph # (Auto) 2.4 10^3/uL (0.8-4.8) 12/14/22 03:55 Desha # (Auto) 1.0 10^3/uL (0.2-0.9) H 12/14/22 03:55 Eos # (Auto) 0.4 10^3/uL (0.0-0.8) 12/14/22 03:55 Baso # (Auto) 0.0 10^3/uL (0.0-0.1) 12/14/22 03:55 Nucleated RBC % (auto) 0 % 12/14/22 03:55 Nucleated RBCs # 0.0 /100WBC 12/14/22 03:55 Sodium 132 mmol/L (136-145) L 12/10/22 04:25 Potassium 4.2 mmol/L (3.5-5.1) 12/10/22 04:25 Chloride 100 mmol/L (98-107) 12/10/22 04:25 Carbon Dioxide 23 mmol/L (22-29) 12/10/22 04:25 Anion Gap 13.2 (5-19) 12/10/22 04:25 BUN 13 mg/dL (8-23) 12/10/22 04:25 Creatinine 0.8 mg/dL (0.5-0.9) 12/10/22 04:25 GFR Calculation Not Reportable 12/10/22 04:25 Glucose 91 mg/dL (65-115) 12/10/22 04:25 Estimat Average Glucose 105 12/09/22 05:17 Hemoglobin A1c 5.3 % (4.0-6.0) 12/09/22 05:17 Calculated Osmolality 274 mOsm/kg (285-295) L 12/10/22 04:25 Calcium 7.8 mg/dL (8.5-10.5) L 12/10/22 04:25 Phosphorus 3.5 mg/dL (2.5-4.5) 12/09/22 05:17 Magnesium 1.7 mg/dL (1.7-2.3) 12/09/22 05:17 Iron 63 ug/dL (37-145) 12/13/22 05:03 TIBC 152 mcg/dl 12/13/22 05:03 % Saturation 41.4 % (20-50) 12/13/22 05:03 Unsat Iron Binding 89 ug/dL (112-347) L 12/13/22 05:03 Ferritin 139 ng/mL (15-150) 12/13/22 05:03 Total Bilirubin 0.3 mg/dL (0.15-1.2) 12/10/22 04:25 AST 22 U/L (0-32) 12/10/22 04:25 ALT 7 U/L (0-33) 12/10/22 04:25 Alkaline Phosphatase 61 U/L (35-105) 12/10/22 04:25 Troponin T Baseline 9 ng/L (0-10) 12/08/22 10:16 Troponin T 120 Minute 7.68 ng/L (0-10) 12/08/22 12:17 Delta Troponin T -1.32 ABS# (0-10) L 12/08/22 12:17 Troponin T Hi Sens 6Hr 7.28 ng/L (0-10) 12/08/22 16:11 Troponin T Hi Sens 6Hr Delta -1.72 ng/L (0-12) L 12/08/22 16:11 NT-Pro-B Natriuret Pep 177 pg/mL (0-450) 12/08/22 10:16 Total Protein 5.7 g/dL (6.6-8.7) L 12/10/22 04:25 Albumin 3.1 g/dL (3.5-5.2) L 12/10/22 04:25 Globulin 2.6 g/dL (1.3-4.6) 12/10/22 04:25 Vitamin B12 > 2000 pg/mL (232-1245) H 12/08/22 10:16 Folate > 20.0 ng/mL (4.8-37.3) 12/09/22 05:17 Urine Color Yellow (Yellow) 12/08/22 15:05 Urine Appearance Clear (CLEAR) 12/08/22 15:05 Urine pH 6.5 (5-7) 12/08/22 15:05 Ur Specific [place] 1.015 (1.005-1.030) 12/08/22 15:05 Urine Protein Neg (Negative) 12/08/22 15:05 Urine Glucose (UA) Norm (Normal) 12/08/22 15:05 Urine Ketones Negative (Negative) 12/08/22 15:05 Urine Blood Neg (Negative) 12/08/22 15:05 Urine Nitrate Negative (Negative) 12/08/22 15:05 Urine Bilirubin Neg (Negative) 12/08/22 15:05 Urine Urobilinogen Norm mg/dL (Negative) 12/08/22 15:05 Ur Leukocyte Esterase Negative (Negative) 12/08/22 15:05 SARS-CoV-2 Ag (Rapid) negative (Negative) 12/14/22 09:10 Vitals Last Vital Signs Temp 98.0 F 12/14/22 07:33 Pulse 87 12/14/22 07:33 Resp 16 12/14/22 07:33 BP 152/70 12/14/22 07:33 Pulse Ox 92 12/14/22 07:33 O2 Del Method Room Air 12/14/22 07:33 O2 Flow Rate 2 12/14/22 08:00 Discharge Plan Discharge Patient Disposition: Xfer SNF Condition: Stable Prescriptions: New ondansetron 4 mg tablet,disintegrating 4 mg PO DAILY 5 Days Qty: 5 0RF calcium carbonate-vitamin D3 600 mg-10 mcg (400 unit) Tablet 1 tab PO BID 30 Days Qty: 60 0RF Lovenox 30 mg/0.3 mL syringe 30 mg SUBCUT DAILY 35 Days Qty: 10.5 0RF pantoprazole 40 mg Tablet,Delayed Release (Dr/Ec) 40 mg PO BID Qty: 90 0RF oxycodone 5 mg tablet 5 mg PO Q6H PRN (Reason: pain) 7 Days Qty: 28 0RF Continued triamcinolone acetonide 0.5 % ointment 1 applic topical BID Qty: 15 11RF alendronate 70 mg tablet 70 mg PO .weekly Qty: 12 11RF Vitamin C 1,000 mg Tablet 1,000 mg PO DAILY Vitamin D3 25 mcg (1,000 unit) Tablet 25 mcg PO DAILY buriukhaqqea-gemy-idpag acid 18-400 mg-mcg Tablet 1 tab PO DAILY Glucosamine Chondroitin 550-30-1 mg Capsule 1 cap PO DAILY vitamin U88-lkxyo acid 2,500-400 mcg Tablet,Disintegrating 1 tab PO DAILY potassium citrate 99 mg Capsule 99 mg PO DAILY Discontinued lisinopril 20 mg tablet 20 mg PO DAILY Qty: 30 11RF aspirin 325 mg Capsule 325 mg PO DAILY Discharge Orders: Discharge Order (Routine); Ordered 12/14/22 Ordered By: Shawn Bradshaw Other Ambulatory Orders: Immunochemical Fecal OCB (Routine) Timeframe: 1 Day Facility: [facility] - Location: Lab - Main Lab Ordered By: Shawn Bradshaw Referrals: [facility] [Outside] Ba Olvera DO [Physician] - 12/25/22 2:45 pm (Please arrive 15 minutes early.) Contreras Jose MD [Primary Care Provider] - Discharge Diet: Advance as tolerated Discharge Activity: Increase activity as tolerated, Use walker/crutches as instructed and As per PT/OT instructions Patient Instructions: Oxycodone/Acetaminophen (By mouth), Enoxaparin (By injection), Pantoprazole (By mouth), Fall Prevention (GEN), Acute Posthemorrhagic Anemia (GEN), Opioid Safety Activity Restrictions/Additional Instructions: Orthopedic discharge instructions: Patient may weight-bear as tolerated left lower extremity Utilize walker as needed for safety Keep incisions clean dry and intact May leave Silverlon bandage dressing on in place for 7 days postoperatively at that time may remove rinse incision with warm soapy water pat dry and redress with a new dry dressing. He may change the Silverlon bandage sooner if more than 50% of bandage is saturated Ice as needed for pain and swelling Take pain medication as prescribed Take antinausea medication as needed Supplement with Citracal vitamin D for bone health and healing Take Lovenox (blood thinner) as prescribed for 35 days postoperatively to prev ent blood clots Follow-up in the orthopedic office in 2 weeks Contact the office for any questions or concerns Please follow-up CBC over the weekend for anemia. Aspirin is stopped, please follow-up with your primary doctor to discuss whether you need to restart aspirin. Please follow-up with your primary doctor regarding Hemoccult testing, and consideration of further evaluation by endoscopy due to noted dark stools. Please avoid any NSAIDs. Maintain orthostatic precautions, sit up and rise slowly. If you get lightheaded sit down or lie down immediately. Discharge Attestations Time Spent in Discharge Care*: greater than 30 min Quality Metrics Clinical Quality Measures [ No reported AMI, CVA or VTE this stay] Coding Level of Care Code 70231 Total time (in minutes) for Discharge: 40 Diagnoses Acute anemia D64.9 Closed intertrochanteric fracture of left hip S72.142A Hypertension I10 Palpitations R00.2 Postoperative anemia D64.9
--- NOTE | 2022-12-14 13:38 | PC.NURSE ---
Report given to Mely Flynn at [facility] via phone at [phone]. Attempted to call an hour prior, however, receptionist telephone operator told me all nurses were on lunch and to call back in an hour.
[2022-12-14] MEDS: acetaminophen 325 mg Tablet 650 MG PO (14:02)
== END 2022-12-14 14:00 | disposition skilled nursing facility (03) | DRG 481 ==
LOC: ER 11:14 → ER IP 11:52 → MEDSURG 12:51
PROVIDERS: Student in an Organized Health Care Education/Training Program; Admitting Provider Student in an Organized Health Care Education/Training Program; Emergency Provider Emergency Medicine; PCP Family Medicine; Visit Provider Internal Medicine
PROC: 0QH736Z Insertion of Intramedullary Internal Fixation Device into Left Upper Femur, Percutaneous Approach (ICD-10-PCS; CPT 27245; principal; 2022-12-08 17:15)
DX: S72.142A Displaced intertrochanteric fracture of left femur, initial encounter for closed fracture (principal); D62 Acute posthemorrhagic anemia; K92.1 Melena; W01.0XXA Fall on same level from slipping, tripping and stumbling without subsequent striking against object, initial encounter; I10 Essential (primary) hypertension; M81.0 Age-related osteoporosis without current pathological fracture; Z96.652 Presence of left artificial knee joint; Z98.1 Arthrodesis status; Z87.891 Personal history of nicotine dependence
CPT/HCPCS: 36415; 71045; 72170; 73502; 73552; 73562; 76000; 80053; 81003; 82607; 82728; 82746; 83036; 83540; 83550; 83735; 83880; 84100; 84484; 85014; 85018; 85025; 87426; 93005; 93306; 94664; 96372; 96374; 96375; 96376; 97110; 97116; 97161; 97166; 97530; 97535; 99285; C1713; C1776; C9113; J0690; J1100; J1650; J1885; J2270; J2405; J2704; J3010; J7030

== ENCOUNTER → 2022-12-25 14:30 | Outpatient (BNVA) | payer MEDICARE, SELFPAY | PROVIDERS: PCP Family Medicine; Visit Provider Student in an Organized Health Care Education/Training Program | DX: S72.142A Displaced intertrochanteric fracture of left femur, initial encounter for closed fracture (principal); X58.XXXA Exposure to other specified factors, initial encounter | CPT/HCPCS: 73502; 99024 ==

== ENCOUNTER → 2022-12-28 15:48 | Outpatient (BNVA) | payer MEDICARE, SELFPAY | PROVIDERS: PCP Family Medicine; Visit Provider Family Medicine | DX: D64.9 Anemia, unspecified (principal); Z09 Encounter for follow-up examination after completed treatment for conditions other than malignant neoplasm | CPT/HCPCS: 80053; 85025 ==

== ENCOUNTER → 2023-01-29 13:37 | Outpatient (BNVA) | payer MEDICARE, SELFPAY | PROVIDERS: PCP Family Medicine; Visit Provider Family Medicine | DX: D64.9 Anemia, unspecified; I10 Essential (primary) hypertension | CPT/HCPCS: 80048; 85025 ==

== ENCOUNTER → 2023-02-06 10:22 | Outpatient (BNVA) | payer MEDICARE, SELFPAY | PROVIDERS: PCP Family Medicine; Visit Provider Student in an Organized Health Care Education/Training Program | DX: S72.142A Displaced intertrochanteric fracture of left femur, initial encounter for closed fracture (principal); X58.XXXA Exposure to other specified factors, initial encounter | CPT/HCPCS: 73502; 99024 ==

== ENCOUNTER 2023-04-05 13:39 | Outpatient (CLI) | payer MEDICARE, SELFPAY ==
--- NOTE | 2023-04-05 13:48 | MM_ITS ---
WS: [id number] BILATERAL SCREENING DIGITAL TOMOSYNTHESIS MAMMOGRAM WITH CAD HISTORY: SCREENING COMPARISON: 02/13/2022 and 02/10/2021 Bilateral CC and MLO views with tomosynthesis and synthetic mammography submitted. Computer aided de tection analyzed. Breast composition: There are scattered areas of fibroglandular density. No suspicious masses, microc alcifications or architectural distortion. IMPRESSION: MM/[place] [id number] BI-RADS: 1-Negative FOLLOW UP: 1 Year Follow-up
== END 2023-04-05 13:40 | disposition home or self-care (01) ==
PROVIDERS: PCP Family Medicine; Visit Provider Family Medicine
DX: Z12.31 Encounter for screening mammogram for malignant neoplasm of breast (principal)
CPT/HCPCS: 77063; 77067

== ENCOUNTER → 2023-04-09 15:53 | Outpatient (BNVA) | payer MEDICARE, SELFPAY | PROVIDERS: PCP Family Medicine; Visit Provider Student in an Organized Health Care Education/Training Program | DX: S72.142D Displaced intertrochanteric fracture of left femur, subsequent encounter for closed fracture with routine healing; X58.XXXD Exposure to other specified factors, subsequent encounter | CPT/HCPCS: 73502; 99213 ==

== ENCOUNTER → 2023-04-18 07:58 | Outpatient (BNVA) | payer MEDICARE, SELFPAY | PROVIDERS: PCP Family Medicine; Visit Provider Physician Assistant | DX: S72.142A Displaced intertrochanteric fracture of left femur, initial encounter for closed fracture (principal); X58.XXXA Exposure to other specified factors, initial encounter | CPT/HCPCS: 73502; 99213 ==

== ENCOUNTER 2023-06-04 15:08 | Outpatient (CLI) | payer MEDICARE, SELFPAY ==
--- NOTE | 2023-06-04 15:30 | CT_ITS ---
WS: [id number] CT PELVIS WITH CONTRAST HISTORY: right groin pain TECHNIQUE: Contiguous imaging is performed of the pelvis with IV contrast. Coronal and sagittal refor mats are reviewed. All CT scans at [facility] use at least one of these dose optimization georgiana hniques: automated exposure control; mA and/or kV adjustment per patient size (includes targeted exam s where dose is matched to clinical indication); or iterative reconstruction. DLP: 328.76 mGy.cm COMPARISON: None available. Omnipaque 350; 95 mL IV. BB marker is placed over the RIGHT hip at the area of pain. There is no underlying soft tissue abnorm ality identified. No bone destruction or fracture. There is a very subtle area of increased fat stran ding surrounding the gluteus medius tendon. There is no full-thickness tear but there is atrophy of t he gluteus medius muscle. Mild fatty changes suggesting volume loss and atrophy. There is no acute fr acture. Prior LEFT hip fixation hardware. Hardware appears in appropriate position. Moderate atherosclerosis distal aorta extending into the iliac arteries. IMPRESSION: 1. Mild volume loss and a small amount of edema involving the RIGHT gluteus medius muscle. Edema surr ounds the gluteus medius tendon over the RIGHT hip. There is some volume loss in the muscle as compar ed to the LEFT hip. No prior studies for comparison. Age indeterminant. 2. No fractures. 3. Prior LEFT hip ORIF.
[2023-06-04 15:46] LABS: Blood Urea Nitrogen 19 mg/dL (8-23)
[2023-06-04] MEDS: iohexol 350 mg/mL 500 mL Btl (per mL) IV (16:09)
== END 2023-06-04 15:09 | disposition home or self-care (01) ==
LOC: RAD 15:08
PROVIDERS: PCP Family Medicine; Visit Provider Family Medicine
DX: R10.31 Right lower quadrant pain (principal); R60.0 Localized edema; Z98.890 Other specified postprocedural states
CPT/HCPCS: 72193; 82565; 84520; Q9967

== ENCOUNTER → 2023-07-10 13:45 | Outpatient (BNVA) | payer MEDICARE, SELFPAY | PROVIDERS: PCP Family Medicine; Visit Provider Student in an Organized Health Care Education/Training Program | DX: M16.11 Unilateral primary osteoarthritis, right hip; M70.61 Trochanteric bursitis, right hip; S72.142D Displaced intertrochanteric fracture of left femur, subsequent encounter for closed fracture with routine healing; X58.XXXD Exposure to other specified factors, subsequent encounter | CPT/HCPCS: 20610; 73502; 99214; J3301; J3490 ==

== ENCOUNTER 2023-07-20 10:37 | Outpatient (RCR) | payer MEDICARE, SELFPAY | END 2023-07-25 23:59 | disposition home or self-care (01) | LOC: SPT 10:37 | PROVIDERS: PCP Physician Assistant; Visit Provider Student in an Organized Health Care Education/Training Program | DX: M16.11 Unilateral primary osteoarthritis, right hip (principal) | CPT/HCPCS: 97161 ==

== ENCOUNTER 2023-07-26 06:00 | Outpatient (RCR) | payer MEDICARE, SELFPAY | END 2023-08-23 23:59 | disposition home or self-care (01) | LOC: SPT 06:00 | PROVIDERS: PCP Physician Assistant; Visit Provider Student in an Organized Health Care Education/Training Program | DX: M16.11 Unilateral primary osteoarthritis, right hip (principal) | CPT/HCPCS: 97110 ==

== ENCOUNTER 2023-08-24 06:00 | Outpatient (RCR) | payer MEDICARE, SELFPAY | END 2023-08-24 23:59 | disposition home or self-care (01) | LOC: SPT 06:00 | PROVIDERS: PCP Physician Assistant; Visit Provider Student in an Organized Health Care Education/Training Program | DX: M16.11 Unilateral primary osteoarthritis, right hip (principal) | CPT/HCPCS: 97110 ==

== ENCOUNTER → 2023-10-15 11:50 | Outpatient (BNVA) | payer MEDICARE, SELFPAY | PROVIDERS: PCP Family Medicine; Visit Provider Clinical Nurse Specialist Adult Health | DX: R32 Unspecified urinary incontinence (principal); R10.31 Right lower quadrant pain; Z79.899 Other long term (current) drug therapy | CPT/HCPCS: 81000; 87086 ==

== ENCOUNTER 2023-10-17 08:59 | Emergency (ER) | payer MEDICARE, SELFPAY ==
[2023-10-17 09:12] VITALS: BP 151/75; PULSE 68; RESP 17; TEMP 36.6; O2SAT 96; BMI 27.9
[2023-10-17 10:11] LABS: Basophils # 0.1 10^3/uL (0.0-0.1); Basophils % 0.9 %; Eosinophils # 0.3 10^3/uL (0.0-0.8); Eosinophils % 3.7 %; Lymphocytes % 28.7 %; Mean Corpuscular HGB Conc 33.7 g/dL (30-55); Mean Corpuscular Hemoglobin 31.7 pg (27-33); Mean Corpuscular Volume 94.1 fl (85-98); Mean Platelet Volume 9.8 fL (7.4-10.4); Monocytes # 0.8 10^3/uL (0.2-0.9); Monocytes % 11.4 %; Neutrophils # 3.88 10^3/uL (1.8-7.7); Neutrophils % 55.2 %; Nucleated Red Blood Cells % 0 %; Platelet Count 249 10^3/cmm (157-399); Red Blood Count 4.04 10^6/uL (3.85-5.65); Red Cell Distribution Width 12.6 % (12.1-15.1); White Blood Count 7.03 10^3/uL (3.29-11.43)
[2023-10-17 10:34] LABS: Alanine Aminotransferase 12 U/L (0-33); Albumin Level 3.9 g/dL (3.5-5.2); Alkaline Phosphatase 103 U/L (35-105); Anion Gap 14.2 (5-19); Aspartate Amino Transferase 24 U/L (0-32); Blood Urea Nitrogen 14 mg/dL (8-23); Calcium 9.5 mg/dL (8.5-10.5); Carbon Dioxide 27 mmol/L (22-29); Chloride 97 mmol/L (98-107); Creatinine Clr Calc Pharmacy 59.1792; Glucose 94 mg/dL (65-115); Osmolality Calculated 278 mOsm/kg (285-295); Potassium 4.2 mmol/L (3.5-5.1); Sodium 134 mmol/L (136-145); Total Bilirubin 0.5 mg/dL (0.15-1.2); Total Protein 7.9 g/dL (6.6-8.7)
--- NOTE | 2023-10-17 11:23 | W.ED.BACK ---
HPI - Back Pain/Injury General: Chief Complaint: Back Pain/Injury Stated Complaint: Back pain Time Seen by Provider: 10/17/23 09:06 History of Present Illness: 77-year-old female presents emergency department with complaints of low back pain. She states the pain has been constant and ongoing for the previous 3 days. She states it became much worse this morning at approximately 4 AM. She states she did take her muscle relaxers baclofen that she was prescribed after seeing her primary care provider this week. She states she also had back surgery and states that she has rods and pins in her back. She states her back surgery was approximately 4 to 5 years ago and she has been doing well since that time. She states that approximately 2 weeks ago she was sitting in a chair at home when her back pain started. It is continued to progress. She states she is not having any numbness or tingling but does have significant increased pain. She states she has also been seeing Dr. Olvera orthopedic doctor for a previously broken leg. She states she has not had any known injury or trauma that she can think of recently. Review of Systems General: Reports: 10 or more systems reviewed and unremarkable except in HPI and below Musc: Reports: back pain [facility] PFSH: Medical History Lichen planus Osteoporosis Hypertension Surgical History History of shoulder surgery Bilateral History of lumbar fusion History of left knee replacement History of hysterectomy History of colonoscopy (11/04/20) Diverticulosis Family History Denies family history of Anesthesia complication Bleeding disorder Social History Smoking and tobacco/nicotine status: former use of tobacco/nicotine Alcohol intake: never Substance/Drug Use: never Caregiver/support person: Yes Lives independently: Yes Household members: spouse Housing: House Physical Exam Narrative: EXAM NARRATIVE: Constitutional: the patient appears well nourished and with normal development. Vital signs reviewed as documented. HENMT: Normocephalic, atraumatic. External ears normal appearance without drainage. Nose without drainage, normal appearance. Mucus membranes moist. Neck is supple, No jugular venous distension, trachea is midline, no appreciable carotid bruits. No lymphadenopathy. No meningeal signs. Flexion, extension and lateral rotation is without pain. Eyes: Pupils are equal, round, reactive to light and accommodation. No scleral icterus. Extra-ocular movement are intact. Thorax is symmetrical and with equal rise and fall with respirations. Resp: Lungs are clear to auscultation. No wheezes, rales, crackles or ronchi at present. Cardio: Regular rate and rhythm. Positive S1, S2. No appreciable murmurs, rubs or gallops. GI: Abdominal exam reveals normal bowel sounds to all quadrants. No organomegaly. No obvious palpable masses noted. No hepatomegally appreciated. Soft, non-tender to palpation. Extremity: Extremities are non-edematous and both femoral and pedal pulses are 2+ and equal bilaterally. Moves all extremities well, sensation in all extremities. Neuro: Alert and oriented x4, person, place, time and situation. Cranial nerves II through XII are grossly intact, there is no focal neurological deficits that I can appreciate at present. Sensation intact to all extremities. 2-point discrimination intact. Light touch intact to all extremities. Motor strength in the upper and lower extremities are equal and bilateral 5/5. Psych: Cooperative, calm, normal thought process, appropriate judgment. Skin: No lesions, rashes. No gross abnormalities noted. Back: Symmetrical, no obvious deformity, No CVA tenderness Course Reevaluation(s): Reevaluation #1: I discussed the radiographic findings with the patient as well as the importance of follow-up with the orthopedic spine physician. I have provided her the contact information for Dr. Mariscal and we will provide her pain medication and muscle relaxers as well as stool softener. Time: 12:54 Vital Signs: Vital signs: Vital Signs Temperature 97.8 F 10/17/23 09:12 Pulse Rate 68 10/17/23 09:12 Respiratory Rate 17 10/17/23 09:12 Blood Pressure 151/75 10/17/23 09:12 Pulse Oximetry 96 10/17/23 09:12 Oxygen Delivery Me thod Room Air 10/17/23 09:12 MDM - Back Pain/Injury Medical Decision Making Physical exam completed and documented, I did obtain a CBC, CMP, urinalysis and plain film x-rays. I have provided Toradol, Norflex and Decadron. Medical Records I reviewed the patient's medical records. Labs I reviewed the patient's lab results. 10/17/23 10:01 10/17/23 10:01 Radiology Impressions Lumbar Spine X-Ray 10/17/23 11:43 IMPRESSION: Lower lumbar spine fusion with hardware in place from L3 through S1. Moderate L2 superior endplate compression fracture and moderate L1-L2 degenerative disc disease. Thoracic Spine X-Ray 10/17/23 11:43 IMPRESSION: Moderate to severe T9 compression fracture, age indeterminate. Osteopenia and mild degenerative disc disease. Laboratory Results WBC 7.03 10^3/uL (3.29-11.43) 10/17/23 10:01 RBC 4.04 10^6/uL (3.85-5.65) 10/17/23 10:01 Hgb 12.80 g/dL (11.27-16.99) 10/17/23 10:01 Hct 38.0 % (36-47) 10/17/23 10:01 MCV 94.1 fl (85-98) 10/17/23 10:01 MCH 31.7 pg (27-33) 10/17/23 10:01 MCHC 33.7 g/dL (30-55) 10/17/23 10:01 RDW 12.6 % (12.1-15.1) 10/17/23 10:01 Plt Count 249 10^3/cmm (157-399) 10/17/23 10:01 MPV 9.8 fL (7.4-10.4) 10/17/23 10:01 Neut % (Auto) 55.2 % 10/17/23 10:01 Lymph % (Auto) 28.7 % 10/17/23 10:01 [place] % (Auto) 11.4 % 10/17/23 10:01 Eos % (Auto) 3.7 % 10/17/23 10:01 Baso % (Auto) 0.9 % 10/17/23 10:01 Neut # (Auto) 3.88 10^3/uL (1.8-7.7) 10/17/23 10:01 Lymph # (Auto) 2.0 10^3/uL (0.8-4.8) 10/17/23 10:01 [place] # (Auto) 0.8 10^3/uL (0.2-0.9) 10/17/23 10:01 Eos # (Auto) 0.3 10^3/uL (0.0-0.8) 10/17/23 10:01 Baso # (Auto) 0.1 10^3/uL (0.0-0.1) 10/17/23 10:01 Nucleated RBC % (auto) 0 % 10/17/23 10:01 Nucleated RBCs # 0.0 /100WBC 10/17/23 10:01 Sodium 134 mmol/L (136-145) L 10/17/23 10:01 Potassium 4.2 mmol/L (3.5-5.1) 10/17/23 10:01 Chloride 97 mmol/L (98-107) L 10/17/23 10:01 Carbon Dioxide 27 mmol/L (22-29) 10/17/23 10:01 Anion Gap 14.2 (5-19) 10/17/23 10:01 BUN 14 mg/dL (8-23) 10/17/23 10:01 Creatinine 0.8 mg/dL (0.5-0.9) 10/17/23 10:01 GFR Calculation Not Reportable 10/17/23 10:01 Glucose 94 mg/dL (65-115) 10/17/23 10:01 Calculated Osmolality 278 mOsm/kg (285-295) L 10/17/23 10:01 Calcium 9.5 mg/dL (8.5-10.5) 10/17/23 10:01 Total Bilirubin 0.5 mg/dL (0.15-1.2) 10/17/23 10:01 AST 24 U/L (0-32) 10/17/23 10:01 ALT 12 U/L (0-33) 10/17/23 10:01 Alkaline Phosphatase 103 U/L (35-105) 10/17/23 10:01 Total Protein 7.9 g/dL (6.6-8.7) 10/17/23 10:01 Albumin 3.9 g/dL (3.5-5.2) 10/17/23 10:01 Globulin 4.0 g/dL (1.3-4.6) 10/17/23 10:01 All radiology interpretation(s) finalized by discharge Discharge Plan Discharge Patient Disposition: Home Clinical Impression: Compression fracture of lumbar vertebra, Acute back pain Condition: Stable Prescriptions: New hydrocodone-acetaminophen 10-325 mg tablet 1 tab PO Q6H PRN (Reason: pain) Qty: 14 0RF cyclobenzaprine 10 mg tablet 10 mg PO Q8H Qty: 14 0RF naproxen 500 mg tablet 500 mg PO Q12H PRN (Reason: pain) Qty: 20 0RF ondansetron HCl 4 mg tablet 4 mg PO Q6H PRN (Reason: nausea and vomiting) Qty: 14 0RF sennosides-docusate sodium [Senna-S] 8.6-50 mg tablet 2 tab-cap PO BID Qty: 60 0RF No Action triamcinolone acetonide 0.5 % ointment 1 applic topical BID Qty: 15 11RF alendronate 70 mg tablet 70 mg PO .weekly Qty: 12 11RF baclofen 5 mg tablet 5 mg PO BID Qty: 30 0RF aspirin 325 mg tablet 325 mg PO DAILY Qty: 30 11RF Vitamin C 1,000 mg Tablet 1,000 mg PO DAILY Vitamin D3 25 mcg (1,000 unit) Tablet 25 mcg PO DAILY opdqyobtdxpn-apqs-afmbw acid 18-400 mg-mcg Tablet 1 tab PO DAILY Glucosamine Chondroitin 550-30-1 mg Capsule 1 cap PO DAILY vitamin W91-ouobp acid 2,500-400 mcg Tablet,Disintegrating 1 tab PO DAILY potassium citrate 99 mg Capsule 99 mg PO DAILY Discharge Orders: Discharge ED (Routine); Ordered 10/17/23 Ordered By: Antwon Meredith Referrals: Mio Mariscal DO [Physician] - Contreras Jose MD [Primary Care Provider] - Discharge Diet: Usual diet Discharge Activity: Resume usual activity Patient Instructions: Opioid Safety, Pain Management Coding Level of Care Code ED Postdoctoral Research Fellow for Madisyn Eason
--- NOTE | 2023-10-17 11:43 | XRR_ITS ---
PROCEDURE INFORMATION: Exam: XR Lumbosacral Spine Exam date and time: 10/17/2023 11:48 AM Age: 77 years old Clinical indication: Low back pain TECHNIQUE: Imaging protocol: Radiologic exam of the lumbosacral spine. Views: 2 or 3 views. COMPARISON: MR lumbar spine wo con* [id number] 09/10/2018 8:16 AM FINDINGS: Bones/joints: Prior posterior fusion from L3 through S1. Evaluation limited by limited resolution secondary to large patient body habitus. There is mild anterolisthesis of L4 on L5 and L5 on S1. Mild reverse listhesis of L2 on L3. There is a moderate compression fracture of the L2 vertebral body involving the superior endplate, new compared with MRI of 09/10/2018 which was a preoperative study. There is moderate degenerative disc disease at L1-L2. Mild degenerative change of the sacroiliac joints. Incomplete imaging of proximal left femoral screw. Soft tissues: See Bones/joints finding. Vasculature: Pelvic calcifications most likely represent phleboliths. XR/XR lumbar spine 2-3V* [id number] IMPRESSION: Lower lumbar spine fusion with hardware in place from L3 through S1. Moderate L2 superior endplate compression fracture and moderate L1-L2 degenerative disc disease.
--- NOTE | 2023-10-17 11:43 | XRR_ITS ---
PROCEDURE INFORMATION: Exam: XR Thoracic Spine Exam date and time: 10/17/2023 11:48 AM Age: 77 years old Clinical indication: Pain in thoracic spine; Additional info: Back pain TECHNIQUE: Imaging protocol: Radiologic exam of the thoracic spine. Views: 3 views. COMPARISON: CR XR lumbar spine 2-3V* [id number] 10/17/2023 11:48 AM FINDINGS: Bones/joints: Mild dextrocurvature of the upper thoracic spine. Mild accentuation of the thoracic kyphosis . Moderate to severe T9 compression fracture. Diffuse mild degenerative disc disease. Incomplete imaging of the lumbar spine fusion hardware. Soft tissues: No significant soft tissue pathology. XR/XR thoracic spine 3V* [id number] IMPRESSION: Moderate to severe T9 compression fracture, age indeterminate. Osteopenia and mild degenerative disc disease.
[2023-10-17] MEDS: dexamethasone 10 mg/mL INJ IM (12:16)
[2023-10-17] MEDS: orphenadrine 30 mg/mL Inj 2 mL 60 MG IM (12:16)
[2023-10-17] MEDS: ketorolac 60 mg/2 mL INJ IM (12:16)
[2023-10-17] MEDS: HYDROcodone-acetaminophen 10-325 mg Tablet 1 TAB PO (13:11)
[2023-10-17 13:21] VITALS: BP 148/76; PULSE 69; RESP 15; O2SAT 98
== END 2023-10-17 13:22 | disposition home or self-care (01) ==
PROVIDERS: Family Medicine; Emergency Provider Internal Medicine; PCP Family Medicine
DX: S32.020A Wedge compression fracture of second lumbar vertebra, initial encounter for closed fracture (principal); Z79.82 Long term (current) use of aspirin; I10 Essential (primary) hypertension; Z87.891 Personal history of nicotine dependence; X58.XXXA Exposure to other specified factors, initial encounter
CPT/HCPCS: 36415; 72072; 72100; 80053; 85025; 96372; 99284; J1100; J1885; J2360

== ENCOUNTER → 2023-10-30 12:44 | Outpatient (BNVA) | payer MEDICARE, SELFPAY | PROVIDERS: PCP Family Medicine; Visit Provider Family Medicine | DX: R60.9 Edema, unspecified (principal); I10 Essential (primary) hypertension | CPT/HCPCS: 83880 ==

== ENCOUNTER → 2023-11-22 14:56 | Outpatient (BNVA) | payer MEDICARE, SELFPAY | PROVIDERS: PCP Family Medicine; Visit Provider Physician Assistant | DX: Z98.890 Other specified postprocedural states (principal); S72.142D Displaced intertrochanteric fracture of left femur, subsequent encounter for closed fracture with routine healing; X58.XXXD Exposure to other specified factors, subsequent encounter | CPT/HCPCS: 73502; 99213 ==

== ENCOUNTER 2023-12-03 14:00 | Outpatient (CLI) | payer MEDICARE, SELFPAY ==
--- NOTE | 2023-12-03 14:30 | XR_ITS ---
WS: [id number] DEXA (DUAL ENERGY X-RAY ABSORPTIOMETRY) Bone mineral density was performed using a [employer] machine. HISTORY: compression fractures, since the prior examination hardware has been placed in the lumbar sp ine and LEFT hip. COMPARISON: 02/05/2017 Left forearm BMD: 0.497 g/cm2. T score: -4.3 Z score: -1.7 Total hip BMD: Right: 0.724. T score: -2.2 Z score: -0.5 10 year probability of a major osteoporotic fracture is 61%. Compared to the prior study from 02/05/2017. RIGHT hip bone mineral density has decreased by 6.2%. XR/XR DEXA axial skeleton* [id number] IMPRESSION: OSTEOPOROSIS based upon the WHO classification for females. Significant decrease in bone mineral density within the RIGHT hip since the patricia or examination.
== END 2023-12-03 14:01 | disposition home or self-care (01) ==
LOC: RAD 14:00
PROVIDERS: PCP Family Medicine; Visit Provider Family Medicine
DX: Z00.00 Encounter for general adult medical examination without abnormal findings (principal); M81.0 Age-related osteoporosis without current pathological fracture
CPT/HCPCS: 77080

== ENCOUNTER → 2023-12-13 13:20 | Outpatient (BNVA) | payer MEDICARE, SELFPAY | PROVIDERS: PCP Family Medicine; Visit Provider Family Medicine | DX: M81.0 Age-related osteoporosis without current pathological fracture | CPT/HCPCS: 80053; 82306 ==

== ENCOUNTER 2024-04-30 11:34 | Outpatient (CLI) | payer MEDICARE, SELFPAY ==
--- NOTE | 2024-04-30 11:46 | XR_ITS ---
WS: [id number] XR chest 2V* [id number] REASON FOR EXAM: cough FINDINGS: Moderate tortuosity of the thoracic aorta. The heart size is within normal limits. Calcified granulomas disease bilaterally. Coarse reticular interstitial lung opacities are seen in the lower lobes bilaterally which appear to be chronic compared to 12/08/2022. Compared to the previous examination there is peribronchial cuffing cuffing and several dilated appea ring bronchi in the lower lobes. Moderate degenerative spondylosis in the thoracic spine with posterior lumbar fusion. Previous left r otator cuff tendon repair. Right shoulder configuration indicating chronic complete rotator cuff tend on repair. XR/XR chest 2V* [id number] IMPRESSION: Likely chronic interstitial lung disease. Probable inflammatory airway disease.
== END 2024-04-30 11:35 | disposition home or self-care (01) ==
LOC: RAD 11:39
PROVIDERS: PCP Family Medicine; Visit Provider Family Medicine
DX: R05.9 Cough, unspecified (principal); I10 Essential (primary) hypertension; S22.000A Wedge compression fracture of unspecified thoracic vertebra, initial encounter for closed fracture; M81.0 Age-related osteoporosis without current pathological fracture; X58.XXXA Exposure to other specified factors, initial encounter
CPT/HCPCS: 71046; 80053; 80061; 85025

== ENCOUNTER 2024-05-26 10:10 | Outpatient (CLI) | payer MEDICARE, SELFPAY ==
--- NOTE | 2024-05-26 10:30 | CT_ITS ---
WS: [id number] CT chest w con* [id number] HISTORY: interstitial lung disease TECHNIQUE: Axial imaging performed through the thorax. Coronal and sagittal reformats are submitted. All CT scans at [facility] use at least one of these dose optimization techniques: automated exposure control; mA and/or kV adjustment per patient size (includes targeted exams where dose is mat ched to clinical indication); or iterative reconstruction. CONTRAST: Omnipaque 350; 100 mL IV. DLP: 307.87 mGy.cm COMPARISON: Chest radiograph 04/30/2024 Lungs and central airway: Lung volumes are slightly reduced. Mild diffuse interstitial thickening whi ch is slightly nodular. Greater distribution of the interstitial thickening in the mid to lower lung acosta. Additional honeycombing is noted at the lung bases, greater on the RIGHT. Mild early changes of traction bronchiectasis at the lung bases. There are a few scattered granulomata. No mass or pneum onia. Pleura: Normal. No pleural effusion. Heart and pericardium: Mild cardiomegaly. Mild flattening of the ventricular septum. RIGHT heart tiffanie bers are slightly enlarged. Mediastinum and arminda: 10 mm RIGHT hilar lymph node. No adenopathy. Vessels: Mildly ectatic thoracic aorta with plaque. LEFT carotid artery arises from the base of the i nnominate. There is plaque at the bases and origins of the great vessels. Pulmonary artery is mildly dilated. Chest wall and lower neck: No soft tissue masses. Upper abdomen: Small hiatal hernia. Mild esophageal thickening. No adrenal mass. Osseous structures: Severe vertebral plana compression fracture at T9 without significant retropulsio n. CT/CT chest w con* [id number] IMPRESSION: 1. Pulmonary changes consistent with early UIP. No pneumonia. 2. No mediastinal or hilar adenopathy. 3. Mild RIGHT heart strain. Pulmonary artery slightly dilated. 4. Moderate atherosclerotic plaque within the thoracic aorta and proximal grea t vessels. 5. Known, severe T9 vertebral plana compression fracture.
[2024-05-26] MEDS: iohexol 350 mg/mL 500 mL Btl (per mL) IV (10:43)
--- NOTE | 2024-05-26 11:26 | MM_ITS ---
WS: [id number] BILATERAL SCREENING DIGITAL TOMOSYNTHESIS MAMMOGRAM WITH CAD HISTORY: SCREEN COMPARISON: 04/05/2023, 02/13/2022, Bilateral CC and MLO views with tomosynthesis and synthetic mammography submitted. Computer aided det ection analyzed. RIGHT pectoralis muscle is not included. Breast composition: There are scattered areas of fibroglandular density. No suspicious masses, microc alcifications or architectural distortion. MM/MM scr BI tomosynthesis [id number] IMPRESSION: BI-RADS: 2 - Benign. FOLLOW UP: 1 Year Follow-up
== END 2024-05-26 10:11 | disposition home or self-care (01) ==
LOC: RAD 10:12
PROVIDERS: PCP Family Medicine; Visit Provider Family Medicine
DX: Z12.31 Encounter for screening mammogram for malignant neoplasm of breast (principal); J84.9 Interstitial pulmonary disease, unspecified; R92.323 Mammographic fibroglandular density, bilateral breasts; K44.9 Diaphragmatic hernia without obstruction or gangrene; S22.070A Wedge compression fracture of T9-T10 vertebra, initial encounter for closed fracture; X58.XXXA Exposure to other specified factors, initial encounter
CPT/HCPCS: 71260; 77063; 77067

== ENCOUNTER 2024-06-10 13:37 | Outpatient (CLI) | payer MEDICARE, SELFPAY ==
[2024-06-10 13:56] VITALS: PULSE 67; RESP 18; O2SAT 98
[2024-06-10] MEDS: albuterol 2.5 mg/3 mL Neb INHALATION (13:56)
[2024-06-10 14:00] VITALS: PULSE 68
== END 2024-06-10 13:38 | disposition home or self-care (01) ==
LOC: RT 13:38
PROVIDERS: PCP Family Medicine; Visit Provider Family Medicine
DX: J84.9 Interstitial pulmonary disease, unspecified (principal); R94.2 Abnormal results of pulmonary function studies
CPT/HCPCS: 94060; 94726; 94729; J7613

== ENCOUNTER 2024-09-15 10:40 | Outpatient (CLI) | payer MEDICARE, SELFPAY ==
--- NOTE | 2024-09-15 10:44 | CTR_ITS ---
PROCEDURE INFORMATION: Exam: CT Chest Without Contrast; Diagnostic Exam date and time: 09/15/2024 10:50 AM Age: 78 years old Clinical indication: Condition or disease; Other: Interstitial lung disease TECHNIQUE: Imaging protocol: Diagnostic computed tomography of the chest without contrast. Inspiratory, expiratory, prone imaging obtained. Radiation optimization: All CT scans at this facility use at least one of these dose optimization techniques: automated exposure control; mA and/or kV adjustment per patient size (includes targeted exams where dose is matched to clinical indication); or iterative reconstruction. COMPARISON: CT chest w con* [id number] 05/26/2024 10:34 AM RADIATION DOSE METRICS: Total DLP (mGy-cm): 994.65 FINDINGS: Lungs: Peripheral and basilar predominant bilateral subpleural reticulation. Likely mild fcjij-bzzncma-jeir-left basilar honeycombing with bibasilar bronchiolectasis. Areas of air trapping on expiratory images. Mild pulmonary emphysema. There is a stable 6 mm nodule in the left upper lobe along the fissure. Scattered small calcified granulomata. No mass or consolidation. Bibasilar predominant bronchiolectasis and mild bronchiectasis. Pleural spaces: No pneumothorax. No pleural effusion. Heart: Heart size is normal. No pericardial effusion. Mitral annular calcifications. Coronary arteries: Multi-vessel coronary artery calcifications. Lymph nodes: Calcified mediastinal/hilar lymph nodes compatible with remote granulomatous disease. Vasculature: Limited evaluation without contrast. No thoracic aortic aneurysm. Calcified aortic atherosclerosis and scattered calcified plaque along the included arch vessels. Mildly dilated main pulmonary artery measuring 3.3 cm in diameter suggesting there may be pulmonary arterial hypertension. Diaphragm: Small hiatal hernia. Bones/joints: No acute abnormality. Multilevel degenerative changes of the included spine are again demonstrated. Stable severe compression deformity of T9 without significant retropulsion. Stable postop changes of the left shoulder. Soft tissues: Unremarkable. Other findings: No acute abnormality in the included upper abdomen. Few small hepatic and splenic calcified granulomata. Stable subcentimeter hypodense lesion in the left hepatic lobe, possibly cyst or hemangioma. CT/CT chest con [id number] IMPRESSION: 1. Pulmonary findings suggest probable early UIP as detailed above. No pulmonary consolidation or mass. Left upper lobe 6 mm nodule. For patients at low risk (minimal or absent history of smoking and of other known risk factors), recommend CT Chest at 6-12 months, then consider CT Chest at 18-24 months. For patients at high risk (history of smoking or of other known risk factors), recommend CT Chest at 6-12 months, then CT Chest at 18-24 months. (Reference: Delmis) 2. Calcified aortic atherosclerosis. No thoracic aortic aneurysm. Multi-vessel coronary artery calcifications. 3. Mildly dilated main pulmonary artery suggesting there may be pulmonary arterial hypertension. 4. Other chronic and incidental findings as detailed above. REFERENCES: Delmis Escobedo, et al. Guidelines for Management of Incidental Pulmonary Nodules Detected on CT Images: From the Fleischner Society 2017. Radiology. 2017;284(1):228-243.
== END 2024-09-15 10:41 | disposition home or self-care (01) ==
LOC: RAD 10:42
PROVIDERS: PCP Family Medicine; Visit Provider Student in an Organized Health Care Education/Training Program
DX: J43.9 Emphysema, unspecified (principal); R91.8 Other nonspecific abnormal finding of lung field; I70.0 Atherosclerosis of aorta; I25.10 Atherosclerotic heart disease of native coronary artery without angina pectoris; I28.1 Aneurysm of pulmonary artery; J84.10 Pulmonary fibrosis, unspecified; J47.9 Bronchiectasis, uncomplicated; I34.81 Nonrheumatic mitral (valve) annulus calcification; K44.9 Diaphragmatic hernia without obstruction or gangrene; M47.899 Other spondylosis, site unspecified; M48.54XD Collapsed vertebra, not elsewhere classified, thoracic region, subsequent encounter for fracture with routine healing; Z98.890 Other specified postprocedural states; K75.3 Granulomatous hepatitis, not elsewhere classified; D73.89 Other diseases of spleen; K76.9 Liver disease, unspecified
CPT/HCPCS: 71250

== ENCOUNTER → 2025-01-28 12:04 | Outpatient (BNVA) | payer MEDICARE, SELFPAY | PROVIDERS: PCP Family Medicine; Visit Provider Family Medicine | DX: I10 Essential (primary) hypertension (principal); M81.0 Age-related osteoporosis without current pathological fracture; J84.9 Interstitial pulmonary disease, unspecified | CPT/HCPCS: 80053; 85025 ==

== ENCOUNTER 2025-02-03 15:03 | Outpatient (CLI) | payer MEDICARE, SELFPAY ==
[2025-02-03] MEDS: iohexol 350 mg/mL 500 mL Btl (per mL) PO (15:47)
--- NOTE | 2025-02-03 16:15 | CT_ITS ---
WS: [id number] CT ABDOMEN AND PELVIS WITH CONTRAST HISTORY: abd pain TECHNIQUE: Imaging performed of the abdomen and pelvis with IV contrast. Single phase imaging of the abdomen. Coronal and sagittal reformats are submitted. All CT scans at [facility] use at least one of these dose optimization techniques: automated exposure control; mA and/or kV adjustment per patient size (includes targeted exams where dose is matched to clinical indication); or iterative reconstruction. IV CONTRAST: Omnipaque 350; 100 mL IV. Oral contrast: Yes. DLP: 419.35 mGy.cm COMPARISON: 06/04/2023, chest CT 09/15/2024 Lower thorax: Peripheral fibrotic changes at the lung bases. Mild cardiomegaly. Small hiatal hernia. Liver/biliary system: Normal size liver with a few granulomata. There is a too small to characterize 5 mm hypodense nodule in the LEFT lobe. Portal veins normal. Gallbladder: Normal. No gallstones or wall thickening. No pericholecystic fluid. Pancreas: Mild diffuse atrophy. Spleen: Normal size spleen with several granulomata. Adrenal glands: Normal. Right kidney: Normal. Left kidney: Normal. Aorta: Moderate atherosclerosis with no aneurysm. Mild stenosis at the origin of the SMA and celiac axis. No occlusions. Lymphadenopathy: None. Free fluid: None. GI tract: Normal stomach. No small bowel obstruction. Tortuous colon with mild constipation. No colitis. Appendix is normal. Interval change in appearance of the rectum. There may be a small rectocele now present since 06/04/2023. No mass identified. Abdominal wall: Unremarkable abdominal wall. No hernia. Pelvis: No free fluid or adenopathy within the pelvis. Prior hysterectomy. Bones: Beam hardening artifact through the abdomen and pelvis secondary to lumbar fusion hardware and LEFT hip arthroplasty. Severe planar compression fracture at T9. Concave fracture involving the superior endplate at L2. These fractures did appear to be present on prior radiographs from 10/17/2023. CT/CT abdomen pelvis w con* [id number] IMPRESSION: 1. Moderate atherosclerosis aorta with mild stenosis origin of the celiac axis and SMA. No ischemic changes in the GI tract. 2. Normal appendix. 3. No GI tract obstruction. 4. There is mild crowding in the anorectal region suggest there may be a small rectal prolapse. New since 06/04/2023. 5. No renal obstruction. 6. UIP at the lung bases.
[2025-02-03] MEDS: iohexol 350 mg/mL 500 mL Btl (per mL) IV (16:28)
== END 2025-02-03 15:04 | disposition home or self-care (01) ==
LOC: RAD 15:05
PROVIDERS: PCP Family Medicine; Visit Provider Family Medicine
DX: R10.31 Right lower quadrant pain (principal); I70.0 Atherosclerosis of aorta; I77.4 Celiac artery compression syndrome; K62.89 Other specified diseases of anus and rectum; J84.9 Interstitial pulmonary disease, unspecified
CPT/HCPCS: 74177

== ENCOUNTER → 2025-05-26 10:30 | Outpatient (BNVA) | payer MEDICARE, SELFPAY | PROVIDERS: PCP Family Medicine; Referring Provider Family Medicine; Visit Provider Internal Medicine | DX: J84.9 Interstitial pulmonary disease, unspecified (principal); J47.9 Bronchiectasis, uncomplicated; J96.10 Chronic respiratory failure, unspecified whether with hypoxia or hypercapnia; Z99.81 Dependence on supplemental oxygen; Z87.891 Personal history of nicotine dependence; J44.9 Chronic obstructive pulmonary disease, unspecified; J84.10 Pulmonary fibrosis, unspecified | CPT/HCPCS: 82103; 82164; 85651; 86036; 86038; 86225; 86235; 86431; 99204; Q3014 ==

== ENCOUNTER 2025-06-03 11:48 | Outpatient (CLI) | payer MEDICARE, SELFPAY ==
[2025-06-03 12:10] VITALS: PULSE 76; RESP 18; O2SAT 96
== END 2025-06-03 11:49 | disposition home or self-care (01) ==
LOC: RT 11:50
PROVIDERS: PCP Family Medicine; Visit Provider Internal Medicine
DX: J44.9 Chronic obstructive pulmonary disease, unspecified (principal)
CPT/HCPCS: 94060; 94726; 94729; J7613

== ENCOUNTER 2025-06-05 11:21 | Outpatient (CLI) | payer MEDICARE, SELFPAY ==
--- NOTE | 2025-06-05 11:27 | MM_ITS ---
WS: [id number] BILATERAL 3D TOMOSYNTHESIS DIGITAL SCREENING MAMMOGRAPHY WITH CAD CLINICAL INFORMATION: SCREENING HISTORY: Screening mammogram. No current complaints. COMPARISON: 2023 TECHNIQUE: Bilateral CC and MLO views. FINDINGS: Scattered fibroglandular densities bilaterally. No suspicious focal mass, asymmetry, calcifications, or architectural distortion. No evidence of malignancy. MM/MM scr BI tomosynthesis [id number] IMPRESSION: DENSITY: There are scattered areas of fibroglandular density. BI-RADS: 1 - Negative. FOLLOW UP: 1 Year Follow-up Recommend return to annual screening mammography.
== END 2025-06-05 11:22 | disposition home or self-care (01) ==
LOC: RAD 11:22
PROVIDERS: PCP Family Medicine; Visit Provider Family Medicine
DX: Z12.31 Encounter for screening mammogram for malignant neoplasm of breast (principal); R92.323 Mammographic fibroglandular density, bilateral breasts
CPT/HCPCS: 77063; 77067

== ENCOUNTER 2025-06-15 09:30 | Outpatient (CLI) | payer MEDICARE, SELFPAY ==
[2025-06-15 09:53] VITALS: BMI 26.4
--- NOTE | 2025-06-15 09:53 | ECG_ITS ---
[facility]: [facility]25-[facility]15 Pat Name: Adriano Grubbs Department: Room: Gender: Female Machine Sorter: : 1945 Requested By: Contreras Monroy Order Number: [id number] Susana MD: JUDY MUNOZ Interpretive Statements Lung unchanged pre/post procedure; Intraprocedure shortess of breath; Symptoms resoled by discharge NOTE: Please note that this is the electrocardiogram portion of the Lexiscan/Sestamibi stress test. The perfusion scan will be documented separately. DATA: Baseline heart rate was 76 beats per minute. Baseline blood pressure was 140/74 millimeters of mercury. Target heart rate was 140. Maximum heart rate achieved was 99. which was 70% of the predicted target heart rate. Maximum blood pressure was 140/74 millimeters of mercury. The reason for ending the test was completion of the protocol. The patient did not experience any symptoms. ELECTROCARDIOGRAM: BASELINE: Sinus rhythm. Normal axis. Otherwise, no ST-T changes suggestive of ischemia noted. No arrhythmia noted. EXERCISE: After Lexiscan injection, no ST-T changes suggestive of ischemic noted. No arrhythmia noted. CONCLUSION: Please note due to baseline abnormality of the EKG specificity and sensitivity of the EKG portion of LexiScan MIBI stress test will be low 1. EKG not suggestive of ischemia 2. Lexiscan injection unremarkable. 3. Perfusion scan will be documented separately. Electronically Signed On 06-25-2025 17:15:30 SENIOR MECHANICAL ESTIMATOR by JUDY MUNOZ [email or web address]
--- NOTE | 2025-06-15 09:54 | NMCV_ITS ---
NM kelvin perf SPECT r/s* [id number] Adriano Grubbs Age: 79 Gender: F : 1945 Exam Date: 06/15/2025 10:42 Ordering Phys: Contreras Jose MD Technologist: RAZ Gómez Exam Location: [facility] Indications: cp STRESS TEST Please see separate stress test report in [facility] for full findings IMAGE PROTOCOL Rest/Stress 1 Lexiscan Day Radiopharmaceutical Dose (mCi) Administration Site Administered by Rest: Tc-99m 10.7 IV Shanika Campos, LINEN CONTROLLER Sestamibi Stress:Tc-99m 32.9 IV Shanika Bonillagle, LINEN CONTROLLER Sestamibi Rest: 15-Jun-2025 60 Discovery 630 Stress: 15-Jun-2025 30 Discovery 630 0.4mg Lexiscan. Supine position only as patient was unable to lay prone. Patient was imaged with right arm down. SPECT RESULTS Technical Quality: Good Raw Data Analysis: Normal Image Corrections: Patient motion artifact - motion correction applied Summed Stress Score: 0 Summed Rest Score: 1 Summed Difference Score: 0 PERFUSION FINDINGS SPECT images demonstrate homogeneous tracer distribution throughout the myocardium. FUNCTIONAL RESULTS (calculated via Gated SPECT) Stress Image LV EF (%): 89 Stress EDV (mL):57 TID: 0.89 Stress ESV (mL):6 FUNCTIONAL FINDINGS: There is normal left ventricular systolic function. IMPRESSIONS Myocardial perfusion imaging is normal. Saranya Quintero MD (Electronically Signed) Final Date: 15 June 2025 12:47 S
[2025-06-15 11:51] VITALS: BP 126/63; PULSE 85
== END 2025-06-15 09:31 | disposition home or self-care (01) ==
LOC: CDL 09:32
PROVIDERS: PCP Family Medicine; Visit Provider Family Medicine
DX: R07.9 Chest pain, unspecified (principal)
CPT/HCPCS: 36415; 78452; 93017; 96374; A9500; J2785